=== PATIENT | female | born 1945 | race Caucasian/White ===

== ENCOUNTER 2022-06-26 09:00 | Outpatient (RCR) | payer MEDICARE, BC, SELFPAY ==
--- NOTE | 2022-06-26 15:24 | PT.OPEX ---
PT [place] Outpatient Eval PT [facility] Outpatient Eval Start: 06/05/22 08:20 Freq: Status: Active Protocol: Document 06/05/22 08:30 SUKH (Rec: 06/05/22 12:02 SUKH [id number]) E-signed By Rosario Isabel, PT Physical Therapy Outpatient Evaluation Insurance Information Recert Due Date 09/03/22 Insurance Name Medicare B,[employer] Medical Diagnosis Dysfunction constipation outlet Treating Diagnosis outlet dysfunction constipation lack of coordination Referring MD Dr. Uriel Le Sheela presents to PT with diagnosis of outlet dysfunction constipation. Symptoms have been present for years but have worsened over the past 3-4 years. Does control her issue with constipation with medication and diet. Reports she has issues with bloating and ability to control her gas. She denies any pain with defecating but does not feel like she is able to fully empty. Has urinary urgency issues will with horvath in the door and with running water. Usually in the morning she will struggle to make it to the toilet due to large volumes of urine. Will leak urine approx 1 time a week. Her goal for therapy is to improve function of her bowel. Date of Last Physician Visit 03/22/22 Precautions Treatment Precautions/Contraindications arthritis osteoporosis Sjogren's hypothyroidism depression HTN respiratory problems Assessment Assessment/Impression 77 yo client presents with c/o incomplete emptying of her bowel and bladder. Symptoms have been present for years and are complicated by her PMH . Overall she has a good diet and does drink plenty of fluid. Volume of urine is large at nights (waking 2-4 times a night) and with her first urination in the am. As the day progresses, the volume of urinate does decrease. Pt is able to have daily BM with a softer stool consistency (type 4-6 on Westfall stool scale). Can defecate multiple times a day without ever feeling completely empty. Has had episodes of hypersensitivity in the GI years ago which has improved. Pt is not currently sexually active. Has history of dyspareunia that was partially related to her uterine prolapse and changes in tissues over the past 4 years. Did not assess PFM function today due to time constraints. Plan is to continue with further skilled PT services including use of therapeutic exercise, therapeutic activities, neuromuscular re-ed, manual therapy, and self cares for improving bowel and PFM function. Plan of Care Rehabilitation Potential Good Physical Therapy Goals Short term goals to be achieved in 4 weeks 1. Able to report a reduction in abdominal fullness and bloating by 50% or greater 2. Pt will demonstrate proper toileting posture and pushing techniques to improve bowel function. 3. Pt will report a reduction in her urinary urgency by 60% of greater as seen with ability to better maintain a 2 -4 hour voiding schedule. snf goals to be achieved in 12 weeks. 1. Independent with self-care program to allow for reduction in her bowel/constipation symptoms 2. Will report at least an 80% improvement in ability to feel like bowel is emptying (6 /7 days able to feel empty). 3. Pt able to report ability to control gas 6/7 days. Coordination/Communication With Referral Source Treatment Plan/Direct Interventions Manual Therapy,Neuromuscular Re-ed,Self-Care/Home Management,Therapeutic Activities,Therapeutic Exercises Frequency/Duration 1 time a week for up to 12 visits Patient Will Be Discharged From Therapy Completion of LTG(s),Skills Plateau,Independent w/HEP, Independently Progressing Evaluation Billing Untimed Code Treatment Minutes 45 Complexity Moderate Certification Information Initial Certification Date 06/05/22 Ending Certification Date 09/03/22 Provider Signature Shows Agreement With POC & Medical Necessity Physician Comment/Change Comment or Changes Physician NPI Number #
== END 2022-10-25 14:32 | disposition home or self-care (01) ==
PROVIDERS: PCP Internal Medicine Gastroenterology; Visit Provider Internal Medicine Gastroenterology
DX: K59.02 Outlet dysfunction constipation (principal); Z51.89 Encounter for other specified aftercare
CPT/HCPCS: 97110; 97140; 97162; 97535

== ENCOUNTER 2023-07-25 15:02 | Emergency (ER) | payer MEDICARE, BC, SELFPAY ==
[2023-07-25 15:22] VITALS: BP 162/85; PULSE 78; RESP 18; TEMP 36.7; O2SAT 100; BMI 22.3
--- NOTE | 2023-07-25 18:52 | ED_ITS ---
HPI - General Adult General Date Seen: 07/25/23 Chief complaint: Abdominal Pain Stated complaint: Bowel blockage Time Seen by Provider: 07/25/23 18:25 History of Present Illness HPI narrative: This is a pleasant 78-year-old female presenting to the ER today with her from home for evaluation of constipation. She has a past medical history including chronic troubles with constipation as well as Sjogren syndrome, RA, recent left forearm fracture, hypertension, hypothyroidism. She says she tends to struggle with. The constipation and has for most of her life. This is something she believe she inherited from her father. She typically has a good regimen of hydration and dietary intake with lots of fiber to keep her stools regular. When necessary she will also take a special tea and other [id number] stool softener such as Colace and laxative such as Fleet's enemas. She noticed while she was on vacation about 12 days ago last Saturday that her bowels are beginning to slow down. Since this Saturday she really has not been able to pass any significant bowel movement at all. She has been using Colace, ?calm? oral laxative, and fleets enema at home without significant relief. She is feeling increasingly bloated in her abdomen. She is not vomiting. No fever. No bloody stools. She recently pulled a muscle in her right side of her low back so she is now on Flexeril for that. She does not take any other opiates. No bladder medications or antihistamines or other medications with anticholinergic side effects. No fevers. No vomiting. She has had similar bouts of constipation in the past. One of them occurred years ago when she was on vacation in [place] and was resolved by a dose of lactulose. She had another then was resolved by an enema given to her here in the ED in [place]. Related Data Home Medications Medication Instructions Recorded Confirmed atorvastatin 10 mg tablet 10 mg PO QPM 02/15/23 05/15/23 hydroxychloroquine 200 mg tablet 300 mg PO DAILY 02/15/23 05/15/23 levothyroxine 100 mcg tablet 100 mcg PO QAM 02/15/23 05/15/23 acyclovir 400 mg tablet 400 mg PO TID PRN 02/19/23 05/15/23 calcium 500 mg tablet 500 mg PO DAILY 02/19/23 05/15/23 cholecalciferol (vitamin D3) 25 1,000 unit PO DAILY 02/19/23 05/15/23 mcg (1,000 unit) capsule docosahexaenoic acid (dha)-epa 1 cap PO DAILY 02/19/23 05/15/23 capsule docusate sodium 100 mg capsule 100 mg PO BID 02/19/23 05/15/23 (Colace) loratadine 10 mg tablet (Claritin) 10 mg PO DAILY 02/19/23 05/15/23 amlodipine 5 mg tablet 5 mg PO DAILY 05/15/23 05/15/23 lisinopril 20 mg tablet 20 mg PO DAILY 05/15/23 05/15/23 Previous Rx's Medication Instructions Recorded celecoxib 200 mg capsule (Celebrex) 200 mg PO QDAY #30 caps 02/22/23 lactulose 20 gram/30 mL oral 20 g (30 mL) PO TID PRN 07/25/23 solution constipation #120 mL Allergies Allergy/AdvReac Type Severity Reaction Status Date / Time latex Allergy Mild Rash Verified 05/15/23 09:29 adhesive tape Allergy Rash Verified 05/15/23 09:29 [facility] Medical History Nonrheumatic aortic (valve) stenosis ?I35.0 - Nonrheumatic aortic (valve) stenosis (ICD-10) Abnormality of aortic valve ?Q23.9 - Congenital malformation of aortic and mitral valves, unspecified (ICD-10) HTN (hypertension) ?I10 - Essential (primary) hypertension (ICD-10) Sjogrens syndrome ?M35.00 - Sjogren syndrome, unspecified (ICD-10) Thoracic aortic ectasia ?I77.810 - Thoracic aortic ectasia (ICD-10) Hypothyroidism (acquired) ?E03.9 - Hypothyroidism, unspecified (ICD-10) Hyponatremia ?E87.1 - Hypo-osmolality and hyponatremia (ICD-10) Osteopenia ?M85.80 - Other specified disorders of bone density and structure, unspecified site (ICD-10) Disorder of bone and cartilage, unspecified ?M89.9 - Disorder of bone, unspecified (ICD-10) ?M94.9 - Disorder of cartilage, unspecified (ICD-10) Migraine ?G43.909 - Migraine, unspecified, not intractable, without status migrainosus (ICD-10) 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 (ICD-10) Premenstrual tension syndromes ?N94.3 - Premenstrual tension syndrome (ICD-10) Surgical History History of temporal artery biopsy (04/22/08) ?Z98.890 - Other specified postprocedural states (ICD-10) History of phacoemulsification of cataract of left eye with intraocular lens implantation (07/30/18) ?Z98.42 - Cataract extraction status, left eye (ICD-10) ?Z96.1 - Presence of intraocular lens (ICD-10) History of phacoemulsification of cataract of right eye with intraocular lens implantation (08/13/18) ?Z98.41 - Cataract extraction status, right eye (ICD-10) ?Z96.1 - Presence of intraocular lens (ICD-10) History of open reduction and internal fixation (ORIF) procedure (02/21/23) ?Z98.890 - Other specified postprocedural states (ICD-10) H/O dilation and curettage ?Z98.890 - Other specified postprocedural states (ICD-10) Social History Smoking Status: Never smoker How often do you have a drink containing alcohol: never AUDIT-C Alcohol total score: 0 Non-prescribed substance use: denies use Caffeine: Yes service: No Exam Narrative: Exam Narrative: Constitutional: Appears well-developed and well-nourished. Alert. Conversant. Non toxic. HENT: Head: Atraumatic. Nose: Nose normal. Mouth/Throat: Oral mucosa is clear and moist. no trismus. Pharynx normal. Tonsils symmetric. No tonsillar enlargement, erythema, or exudate. Eyes: Conjunctivae normal. EOM normal. Pupils equal, round, and reactive to light. No scleral icterus. Neck: Normal range of motion. Neck supple. No tracheal deviation present. Cardiovascular: Normal rate, regular rhythm. No gallop. No friction rub. No murmur heard. Symmetric radial artery pulses Pulmonary/Chest: Effort normal. No stridor. No respiratory distress. No wheezes. No rales. No rhonchi . No tenderness. Abdominal: Soft. Bowel sounds normal. No distension. Non tympanic. Left lower quadrant mobile mass suspicious for a stool ball. No tenderness. No rebound. No guarding. Rectal: Performed with female railroad wheels and axles inspector. Normal gluteal cleft. One small external hemorrhoid. No thrombosis. Normal rectal tone. There is no stool or mass in the rectal vault. Musculoskeletal: RUE: Normal range of motion. No tenderness. No deformity LUE: Normal range of motion. No tenderness. No deformity RLE: Normal range of motion. No edema. No tenderness. No deformity LLE: Normal range of motion. No edema. No tenderness. No deformity Lymph: No cervical adenopathy. Neurological: Alert and oriented to person, place, and time. Normal strength. CN II-VII intact. No sensory deficit. GCS eye subscore is 4. GCS verbal subscore is 5. GCS motor subscore is 6. Normal coordination Skin: Skin is warm and dry. No rash noted. No pallor. Normal capillary refill. Psychiatric: Normal mood. Normal affect. Const: Vital Signs, click to edit/add: Vital Signs - 24 hr 07/25/23 15:22 Temperature 98.0 F Pulse Rate [Pulse Oximeter] 78 Respiratory Rate 18 Blood Pressure [Ri ght Upper Arm] 162/85 H Pulse Oximetry 100 Oxygen Delivery Me thod Room Air Course Course ED Course: Recheck-no success self EMS after soapsuds enema. Has received oral lactulose. No BM yet. Is feeling some abdominal cramping after the enema. I recheck the patient reexamined her abdomen. Still soft, nondistended, non tympanic. Discussed options with the patient and her . At this point she is tolerating oral intake. Not vomiting, not having much discomfort or distention. We will treat here supportively with oral laxative at home. Will hold off on workup with CT imaging or labs at this time. However if she does not have significant bowel movements and resolution of her symptoms within the next 12-18 hours, she will return to the ER for re-evaluation. She at that time would pursue further workup with CT imaging just to rule out the the presence of a mechanical obstruction and labs to look at electrolytes, calcium, thyroid for other metabolic causes of ileus. Vital Signs Vital signs: Initial Vital Signs Temperature 98.0 F 07/25/23 15:22 Temperature Source Temporal Artery Scan 07/25/23 15:22 Pulse Rate 78 07/25/23 15:22 Pulse Rhythm Regular 07/25/23 15:22 Respiratory Rate 18 07/25/23 15:22 Blood Pressure 162/85 H 07/25/23 15:22 Blood Pressure Mean 110 H 07/25/23 15:22 Blood Pressure Position Sitting 07/25/23 15:22 Pulse Oximetry 100 07/25/23 15:22 Oxygen Delivery Method Room Air 07/25/23 15:22 Vital Signs Temperature 98.0 F 07/25/23 15:22 Pulse Rate 78 07/25/23 15:22 Respiratory Rate 18 07/25/23 15:22 Blood Pressure 162/85 H 07/25/23 15:22 Pulse Oximetry 100 07/25/23 15:22 Oxygen Delivery Method Room Air 07/25/23 15:22 Temperature 98.0 F 07/25/23 15:22 Pulse Rate 78 07/25/23 15:22 Respiratory Rate 18 07/25/23 15:22 Blood Pressure 162/85 H 07/25/23 15:22 Pulse Oximetry 100 07/25/23 15:22 Oxygen Delivery Method Room Air 07/25/23 15:22 Medical Decision Making MDM Narrative Medical decision making narrative: Presented to the Emergency Department with inability to pass any bowel movement for the past several days at home. She does have a long history of GI transit problems and constipation her, and she feels that this is similar to those prior episodes. She is not having much abdominal pain to raise concern for appendicitis, colitis, diverticulitis, or obstruction. On serial exam she is nondistended non tympanic. She does have a history of hypothyroidism, which if unmanaged could lead to slow GI transit. However she does not have any other symptoms of hypothyroidism such as poor energy, weight gain, swelling. At this point we will hold off on any laboratory workup and try to treat empirically for constipation. On my rectal exam she does not have any significant stool directly in the rectal vault that would be able to be disimpacted. Administration of soapsuds enema unsuccessful. We have administered oral laxatives with lactulose here in the ER. Will await onset of that medication prior to further workup. The exact etiology of the the constipation is not clear at this time, but we suspect is probably functional. No life threatening cause or need for emergent surgery or hospital admission is detected today. The patient was advised that if symptoms do not completely resolve within another 12-18 hours re-evaluation with primary care or return to the ED is indicated. The patient also understands that if they worsen, they should return to the ER right away. I discussed the uncertainty about the diagnosis and answered the patient's questions. Abdominal pain return precautions discussed. Discharge Plan Discharge Clinical Impression: Acute constipation Patient Disposition: Home, Self-Care Condition: Stable Instructions: Constipation (DC) Additional Instructions: As we discussed, please continue to try to stay on your bowel regimen at home. Drink as much fluid as he can to remain adequately hydrated. Continue your current bowel regimen with stool softeners. Add lactulose. Take your next dose of that tomorrow morning and after lunch tomorrow. If you get worse, come back to the ER right away. If you are not able to pass adequate bowel movements by tomorrow afternoon, return to the ER or see your doctor for recheck because he will need further workup with labs and CT scan. Activity Level: No Restrictions Discharge Diet: Regular Prescriptions: New lactulose 20 gram/30 mL solution 20 g PO TID PRN (Reason: constipation) Qty: 120 0RF No Action amlodipine 5 mg tablet 5 mg PO DAILY lisinopril 20 mg tablet 20 mg PO DAILY atorvastatin 10 mg tablet 10 mg PO QPM levothyroxine 100 mcg tablet 100 mcg PO QAM hydroxychloroquine 200 mg tablet 300 mg PO DAILY acyclovir 400 mg tablet 400 mg PO TID PRN Rx Instructions: X7 DAYS calcium 500 mg tablet 500 mg PO DAILY cholecalciferol (vitamin D3) 25 mcg (1,000 unit) capsule 1,000 unit PO DAILY docusate sodium [Colace] 100 mg capsule 100 mg PO BID loratadine [Claritin] 10 mg tablet 10 mg PO DAILY docosahexaenoic acid-epa Capsule 1 cap PO DAILY celecoxib [Celebrex] 200 mg capsule 200 mg PO QDAY Qty: 30 1RF Follow Up/Referrals: Genesis Andersen MD [Primary Care Provider] - Stand Alone Forms: [employer] Info Instructions
--- OUTSIDE RECORDS SUMMARY | 2023-07-25 19:06 | XMS_ITS | Continuity of Care Document ---
Author Name Unknown Organization [facility] Address [address] [place] [address] Phone Care Team Providers Care Card Decorator Name Role Phone Patti Jolly MD Unavailable Unavailable Allergies, Adverse Reactions, Alerts Substance Reaction Status Criticality Sulfa (Sulfonamide Antibiotics) Active No Information Medications Medication Instructions Dosage Effective Dates (start - stop) Status Comments Plaquenil 200 mg tablet take 1.5 (300MG) by oral route every day 300 MG - Active magnesium glycinate-magnesium oxide 120 mg capsule take 1 capsule by oral route 2 times every day 1 capsule - Active lisinopril 40 mg tablet take 1 tablet by oral route every day 40 MG - Active magnesium citrate oral solution - Active acyclovir 400 mg tablet take 1 tablet by oral route every 8 hours as needed 400 MG - Active atorvastatin 10 mg tablet take 1 tablet by oral route every day 10 MG - Active calcium citrate 250 mg tablet 630mg BID - Active Claritin 10 mg tablet take 1 tablet by oral route every day 10 MG - Active Colace 100 mg capsule take 1 capsule by oral route 2 times every day at bedtime as needed 100 MG - Active Synthroid 100 mcg tablet take 1 tablet by oral route every day 100 MCG - Active metronidazole 0.75 % topical cream apply by topical route 2 times every day a thin layer to the affected area(s) in the morning and evening 0.00 - Active Vitamin D3 1,000 unit capsule - Active Fish Oil 1,000 mg (120 mg-180 mg) capsule - Active Plaquenil 200 mg tablet take 1.5 (300MG) by oral route every day 300 MG - No Longer Active Procedures Procedure Date Office/Outpatient Visit, Est Routine Venipuncture Specimen Handling Rbc Sed Rate, Automated Assay Of Serum Albumin Assay Of Creatinine Transferase (Ast) (Sgot) Alanine Amino (Alt) (Sgpt) Complete Cbc WAuto Diff Wbc Office/Outpatient Visit, Est Office/Outpatient Visit, Est Routine Venipuncture Specimen Handling Rbc Sed Rate, Nonautomated Assay Of Serum Albumin Assay Of Creatinine Transferase (Ast) (Sgot) Alanine Amino (Alt) (Sgpt) CReactive Protein Complete Cbc WAuto Diff Wbc Office/Outpatient Visit, Est Routine Venipuncture Rbc Sed Rate, Nonautomated Assay Of Serum Albumin Assay Of Creatinine Transferase (Ast) (Sgot) Alanine Amino (Alt) (Sgpt) CReactive Protein Vitamin D 25 Hydroxy Complete Cbc, Automated Assay Of Calcium Office/Outpatient Visit, Est Routine Venipuncture Rbc Sed Rate, Nonautomated CReactive Protein Office/Outpatient Visit, Est Routine Venipuncture Assay Of Serum Albumin Assay Of Creatinine Transferase (Ast) (Sgot) Alanine Amino (Alt) (Sgpt) Complete Cbc, Automated Routine Venipuncture Assay Of Serum Albumin Assay Of Creatinine Transferase (Ast) (Sgot) Alanine Amino (Alt) (Sgpt) Complete Cbc, Automated Office/Outpatient Visit, Est Routine Venipuncture Rbc Sed Rate, Nonautomated Assay Of Serum Albumin Assay Of Creatinine Transferase (Ast) (Sgot) Alanine Amino (Alt) (Sgpt) CReactive Protein Complete Cbc, Automated Office/Outpatient Visit, Est Routine Venipuncture Rbc Sed Rate, Nonautomated Office/Outpatient Visit, Est Office/Outpatient Visit, Est Specimen Handling Office/Outpatient Visit, New Routine Venipuncture Specimen Handling Rbc Sed Rate, Nonautomated Assay Of Serum Albumin Assay Of Creatinine Transferase (Ast) (Sgot) Alanine Amino (Alt) (Sgpt) Assay Of Ck (Cpk) CReactive Protein Results Test Name Date and Time Measure Units Reference Range Abnormal Flag Status Comments Panel Description: ESR Final ESR 10:13:00 15 mm/hr 0-25 Final Panel Description: CBC 5 part diff Final Neutrophils# 10:14:00 3.16 K/uL 2.00-7.50 Final Neutrophil % 10:14:00 70.90 % 0.00-99.00 Final Eosinophil # 023 10:14:00 0.11 K/uL 0.00-0.50 Final Eosinophil % 10:14:00 2.40 % 0.00-7.00 Final Basophil # 10:14:00 0.02 K/uL 0.00-0.20 Final Basophil % 10:14:00 0.50 % 0.00-99.00 Final WBC 10:14:00 4.5 K/uL 4.0-10.0 Final RBC 10:14:00 3.87 M/uL 3.80-5.80 Final Hemoglobin 10:14:00 12.4 g/dL 11.5-16.0 Final Hematocrit 10:14:00 36.4 % 37.0-47.0 L Final MCV 10:14:00 94 fL 80-100 Final MCH 10:14:00 32.0 pg 27.0-32.0 Final MCHC 10:14:00 34.0 g/dL 32.0-36.0 Final RDW 10:14:00 12.7 % 11.0-16.0 Final Platelet Count 10:14:00 220 K/uL 150-500 Final MPV 10:14:00 8.8 fL 6.0-11.0 Final Lymphocyte% 10:14:00 16.30 % 25.00-50.00 L Final Lymphocyte # 10:14:00 0.7 K/uL 1.0-4.0 L Final Monocytes # 10:14:00 0.44 K/uL 0.20-1.00 Final Monocytes % 10:14:00 9.90 % 2.00-10.00 Final Panel Description: DMARD Final AST 11:51:00 36 U/L 5-34 H Final ALT 11:51:00 17 IU/L 5-35 Final Creatinine 11:51:00 0.700 mg/dL 0.500-1.300 Final ALB 11:51:00 4.1 g/dL 3.5-5.3 Final GFR 11:51:00 86.5 mL/min/ 1.73 m2 Final Panel Description: PROTEIN, TOTAL AND PROTEIN ELECTROPHORESIS W/ REFL FLORI Final PROTEIN, TOTAL 15:28:00 6.5 g/dL 6.1-8.1 N Final ALBUMIN 15:28:00 3.9 g/dL 3.8-4.8 N Final ALPHA 1 GLOBULIN 15:28:00 0.3 g/dL 0.2-0.3 N Final ALPHA 2 GLOBULIN 15:28:00 0.7 g/dL 0.5-0.9 N Final BETA 1 GLOBULIN 15:28:00 0.3 g/dL 0.4-0.6 L Final BETA 2 GLOBULIN 15:28:00 0.3 g/dL 0.2-0.5 N Final GAMMA GLOBULIN 15:28:00 1.0 g/dL 0.8-1.7 N Final INTERPRETATION 15:28:00 Final The decrease i n the beta globulins may be due to decreasedtransfe rrin, complement (C3 and C4), IgA, or IgM. No monoclonal immunoglobulin detected. Advance Directives Directive Yes / No Effective Date File Name No Information Encounters Encounter Description Practice Location Reason(s) For Visit Diagnoses Date Provider Providers Copied on Encounter Office/Outpa tient Visit, Est [facility], [facility], [place], [address], [place] tel:[phone] [facility], Inflammatory Polyarthropat hy (chief complaint) Abnormal weight lossInflamma tory polyarthropa thyOsteopeni aSjogren's syndromeOthe r residential (current) drug therapy 3 Shanae Armstrong. [address], [address], [place], [address], [place]. tel:[phone] Referring Provider: Patti Jolly, [address], [place], [address]. tel:[phone] [facility], [address], [place], [address], [place] tel:[phone] [facility], No Information 3 Shanae Armstrong. [address], [address], [place], [address], [place]. tel:[phone] Office/Outpa tient Visit, Est [facility], [address], [place], [address], [place] tel:[phone] [facility], Inflammatory Polyarthropat hy (chief complaint) Inflammatory polyarthropa thyOsteopeni aSjogren's syndromeOthe r local company intermodal truck driver (current) drug therapyAbnor mal weight loss 2 Shanae Armstrong. [address], [address], [place], [address], [place]. [phone] Referring Provider: Patti Jolly, [address], [place], [address]. 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 [address], [address], [place], [address], [place]. [phone] Referring Provider: Patti Jolly, [address], [place], [address]. tel:[phone] Office/Outpa tient Visit, Est [facility], [address], [place], [address], [place] tel:[phone] [facility], Inflammatory Polyarthropat hy (chief complaint) Inflammatory polyarthropa thySjogren's syndromeOthe r local company intermodal truck driver (current) drug therapyOsteo peniaDrug induced constipation and bloating 2 Shanae Armstrong. [address], [address], [place], [address], [place]. tel:[phone] Referring Provider: Patti Jolly, [address], [place], [address]. tel:[phone] Office/Outpa tient Visit, Est [facility], [address], [place], [address], [place] tel:[phone] [facility], Inflammatory Polyarthropat hy (chief complaint) Inflammatory polyarthropa thySjogren's syndromeOthe r residential (current) drug therapy 1 Shanae Armstrong. [address], [address], [place], [address], [place]. tel:[phone] Referring Provider: Patti Jolly, [address], [place], [address]. tel:[phone] Office/Outpa tient Visit, Est [facility], [address], [place], [address], [place] tel:[phone] [facility], Inflammatory Polyarthropat hy (chief complaint) Inflammatory polyarthropa thySjogren's syndromeOthe r residential (current) drug therapy 1 Shanae Armstrong. [address], [address], [place], [address], [place]. tel:[phone] Referring Provider: Patti Jolly, [address], [place], [address]. tel:[phone] [facility], [address], [place], [address], [place] tel:[phone] [facility], No Information 1 Shanae Armstrong. [address], [address], [place], [address], [place]. tel:[phone] Referring Provider: Pattiporsche Jolly, [address], [place], [address]. tel:[phone] Office/Outpa tient Visit, Est [facility], [address], [place], [address], [place] tel:[phone] [facility], Inflammatory Polyarthropat hy (chief complaint) Inflammatory polyarthropa thySjogren's syndromeOthe r residential (current) drug therapy 1 Shanae Armstrong. [address], [address], [place], [address], [place]. tel:[phone] Referring Provider: Patti Jolly, [address], [place], [address]. tel:[phone] Office/Outpa tient Visit, Est [facility], [address], [place], [address], [place] tel:[phone] [facility], Inflammatory Polyarthropat hy (chief complaint) Inflammatory polyarthropa thyRash and other nonspecific skin eruptionDry mouthPositiv e anti-Ro 1 Shanae Armstrong. [address], [address], [place], [address], [place]. tel:[phone] Referring Provider: Pattiporsche Jolly, [address], [place], [address]. tel:[phone] Office/Outpa tient Visit, Est [facility], [address], [place], [address], [place] tel:[phone] [facility], Inflammatory Polyarthropat hy (chief complaint) Inflammatory polyarthropa thyDry mouthPositiv e anti-RoRash and other nonspecific skin eruption 1 Shanae Patti. [address], [address], [place], [address], [place]. [phone] Referring Provider: Patti Jolly, [address], [place], [address]. tel:[phone] Office/Outpa tient Visit, Est [facility], [address], [place], [address], [place] tel:[phone] [facility], Joint Pain (chief complaint) Dry mouthInflamm atory polyarthropa thyPositive anti-Ro Nov-2 0 0 Shanae Patti. [address], [address], [place], [address], [place]. [phone] Referring Provider: Patti Jolly, [address], [place], [address]. tel:[phone] Office/Outpa tient Visit, [facility], [address], [place], [address], [place] tel:[phone] [facility], Joint Pain (chief complaint) Polyarthralg ia Jul-0 0 Shanae Patti. [address], [address], [place], [address], [place]. [phone] Referring Provider: Patti Jolly, [address], [place], [address]. tel:[phone] Family History Family Member Type Diagnosis Age At Onset No Information Immunizations Vaccine Date Status Comments COVID-19 Pfizer administered Source: Sour ce Unspecified Payers Payer name Insurance type Covered democrat ID Authoriza tisouth(s) Medicare MB [id number] [facility] [id number] Social History Type Description Quantity Date Captured Comments Alcohol Use Details Unknown Caffeine Use Details Unknown Tobacco Use Status Current non-smoker Smoking Status Never smoker Non-Smoking Tobacco Use Details : No Details Available : No Details Available Sex Female Vital Signs Date / Time: Height Weight BMI Pulse Rate Blood Pressure Temperature Respiratory Rate Body Surface Area Head Circumference Head Circ. Percentile Wt./Amilcar. Percentile BMI percentile Pulse Ox Inhaled Ox 8:54 AM 66.50 in 159/88 mm[Hg] 98.10 F Chief Complaint And Reason For Visit From encounter dated '03/05/2023 09:00'. Inflammatory Polyarthropathy (chief complaint) Reason For Referral Reason For Referral No Information Plan Of Treatment Date Type Action Status Appointment Sheela Pitts BOOKED History Of Present Illness Encounter Date Complaint History Of Prese nt Illness Inflammatory Polyarthropathy Inflammatory Polyarthropathy Inflammatory Polyarthropathy Inflammatory Polyarthropathy Inflammatory Polyarthropathy Inflammatory Polyarthropathy Inflammatory Polyarthropathy Inflammatory Polyarthropathy Inflammatory Polyarthropathy Joint Pain Joint Pain Functional Status Date Functional Assessmen t Pain Score 3/10 Instructions Date Instruction Additional Infor mation No Information Assessments Type Assessment Date assessment Abnormal weight loss assessment Inflammatory polyarthropathy Feb assessment Osteopenia assessment Sjogren's syndrome assessment Other residential (current) drug t herapy impression The patient certainl y has evidence of an inflammatory arthritis. I wonder if this is related to a connective tissue disease such as Sjogren's syndrome based on her serologies. She only had a mildly elevated RF IgM which can also be seen in Sjogren's syndrome. She also has chilblains of the feet as well as lymphopenia. Her optimization analyst felt she had mild dry eye. She can likely be categorized as Sjogren's syndrome based on positive MINNIE, positive anti-Ro/La, sicca syndrome, inflammatory arthritis, and lymphopenia.Her inflammatory arthritis significantly improved on hydroxychloroquine. She could not tolerate methotrexate, leflunomide, or azathioprine. Her GI symptoms have resolved since stopping azathioprine but she continues to have weight loss. She is under a lot of stress due to moving.Seeing vascular surgery and cardiology for the discoloration of her feet. I discussed with her that I do not think this is necessarily related to Sjogren's. If their work-up is unremarkable she may benefit from neurology evaluation. impression As noted above I yobany maldonado her presentation is consistent with Sjogren's syndrome.I provided her with information on oral care for dry mouth. She is already seeing the dentist regularly and using fluoride toothpaste and she should continue this. As noted above we are obtaining further work-up to see if she meets criteria for Sjogren's syndrome.We briefly discussed pilocarpine and cevimeline. The patient elected to continue OTC products for now. impression She is aware of the need for yearly eye exam on hydroxychloroquine and is up-to-date with this. impression She notes that her o steopenia has worsened per primary care evaluation. She is was recommended to start Fosamax. She is very concerned about being on this medication due to her GI issues. I recommended she discuss with her primary care provider if they are okay with her trying Reclast instead of the Fosamax. If they are okay with this then we can work on getting that approved here. She is going to wait until her GI symptoms improved before starting the medication. We did also discussed that Reclast is an option. impression She continues to hav e weight loss despite stopping azathioprine. She relates the side effects from the medication are resolved so she is not sure why she is having ongoing weight loss. We discussed adding ensure drinks and working on upping her calories. If this continues, she may benefit from seeing a flag car driver and discussing it further with primary care. Patient Care Teams Name Effective Dates (start - stop) Status Members No Information
[2023-07-25] MEDS: LACTULOSE 20 GM/30 ML PO (19:21)
== END 2023-07-25 20:44 | disposition home or self-care (01) ==
PROVIDERS: Emergency Provider Emergency Medicine; PCP Family Medicine
DX: K59.00 Constipation, unspecified (principal)
CPT/HCPCS: 99283

== ENCOUNTER 2023-07-26 12:34 | Emergency (ER) | payer MEDICARE, BC, SELFPAY ==
[2023-07-26 13:11] VITALS: BP 165/80; PULSE 83; RESP 16; TEMP 36.2; O2SAT 100; BMI 22.3
--- NOTE | 2023-07-26 15:49 | ED_ITS ---
HPI - General Adult General Chief complaint: Constipation Stated complaint: constipation Time Seen by Provider: 07/26/23 15:48 History of Present Illness HPI narrative: Patient here in ER yesterday for constipation. LBM 07/22/2023. Seen by PCP Saturday this week at [facility], abdominal XRay done. Has been doing enema, suppositories, and magnesium citrate at home . Had dose of lactulose this morning. Enema in ER with no results. Feeling slightly nauseated, lightheaded. Here for CT, labs, re-check as outlined as recommended follow up in last ER note if no BM by today . 78-year-old woman presenting to the emergency department with concern of constipation. Feels a little nauseated lightheaded. Was recommended for follow-up in the emergency department after being seen yesterday if had not yet managed have a bowel movement. Has also been seen this week in the clinic. Abdominal x-ray was done at that time. She has done home enema suppository and reportedly magnesium citrate? Lactulose given on visit yesterday to the ER. Is having sharp cramping pains. No fever. No vomiting. Related Data Home Medications Medication Instructions Recorded Confirmed atorvastatin 10 mg tablet 10 mg PO QPM 02/15/23 05/15/23 hydroxychloroquine 200 mg tablet 300 mg PO DAILY 02/15/23 05/15/23 levothyroxine 100 mcg tablet 100 mcg PO QAM 02/15/23 05/15/23 acyclovir 400 mg tablet 400 mg PO TID PRN 02/19/23 05/15/23 calcium 500 mg tablet 500 mg PO DAILY 02/19/23 05/15/23 cholecalciferol (vitamin D3) 25 1,000 unit PO DAILY 02/19/23 05/15/23 mcg (1,000 unit) capsule docosahexaenoic acid (dha)-epa 1 cap PO DAILY 02/19/23 05/15/23 capsule docusate sodium 100 mg capsule 100 mg PO BID 02/19/23 05/15/23 (Colace) loratadine 10 mg tablet (Claritin) 10 mg PO DAILY 02/19/23 05/15/23 amlodipine 5 mg tablet 5 mg PO DAILY 05/15/23 05/15/23 lisinopril 20 mg tablet 20 mg PO DAILY 05/15/23 05/15/23 Previous Rx's Medication Instructions Recorded celecoxib 200 mg capsule (Celebrex) 200 mg PO QDAY #30 caps 02/22/23 lactulose 20 gram/30 mL oral 20 g (30 mL) PO TID PRN 07/25/23 solution constipation #120 mL Allergies Allergy/AdvReac Type Severity Reaction Status Date / Time latex Allergy Mild Rash Verified 05/15/23 09:29 adhesive tape Allergy Rash Verified 05/15/23 09:29 Review of Systems Status of ROS: Reports: 6 or more systems reviewed and unremarkable except as noted in History and below [facility] Medical History Nonrheumatic aortic (valve) stenosis ?I35.0 - Nonrheumatic aortic (valve) stenosis (ICD-10) Abnormality of aortic valve ?Q23.9 - Congenital malformation of aortic and mitral valves, unspecified (ICD-10) HTN (hypertension) ?I10 - Essential (primary) hypertension (ICD-10) Sjogrens syndrome ?M35.00 - Sjogren syndrome, unspecified (ICD-10) Thoracic aortic ectasia ?I77.810 - Thoracic aortic ectasia (ICD-10) Hypothyroidism (acquired) ?E03.9 - Hypothyroidism, unspecified (ICD-10) Hyponatremia ?E87.1 - Hypo-osmolality and hyponatremia (ICD-10) Osteopenia ?M85.80 - Other specified disorders of bone density and structure, unspecified site (ICD-10) Disorder of bone and cartilage, unspecified ?M89.9 - Disorder of bone, unspecified (ICD-10) ?M94.9 - Disorder of cartilage, unspecified (ICD-10) Migraine ?G43.909 - Migraine, unspecified, not intractable, without status migrainosus (ICD-10) 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 (ICD-10) Premenstrual tension syndromes ?N94.3 - Premenstrual tension syndrome (ICD-10) Surgical History History of temporal artery biopsy (04/22/08) ?Z98.890 - Other specified postprocedural states (ICD-10) History of phacoemulsification of cataract of left eye with intraocular lens implantation (07/30/18) ?Z98.42 - Cataract extraction status, left eye (ICD-10) ?Z96.1 - Presence of intraocular lens (ICD-10) History of phacoemulsification of cataract of right eye with intraocular lens implantation (08/13/18) ?Z98.41 - Cataract extraction status, right eye (ICD-10) ?Z96.1 - Presence of intraocular lens (ICD-10) History of open reduction and internal fixation (ORIF) procedure (02/21/23) ?Z98.890 - Other specified postprocedural states (ICD-10) H/O dilation and curettage ?Z98.890 - Other specified postprocedural states (ICD-10) Social History Smoking Status: Never smoker How often do you have a drink containing alcohol: never AUDIT-C Alcohol total score: 0 Non-prescribed substance use: denies use Caffeine: Yes service: No Exam Narrative: Exam Narrative: Pleasant. Seems mildly uncomfortable. Smiles easily. Skin is warm and dry. Extremities are well perfused lower extremities without edema. She is breathing easily. Heart in regular rate and rhythm. Abdomen with present bowel sounds. Tympanitic particularly across the mid and upper abdomen. Diffusely uncomfort able. No masses. No discrete areas of tenderness and without peritoneal signs. Rectal exam was not done. Const: Vital Signs, click to edit/add: Vital Signs - 24 hr 07/26/23 13:11 Temperature 97.1 F L Pulse Rate [Right Pulse Oximeter] 83 Respiratory Rate 16 Blood Pressure [Ri ght Upper Arm] 165/80 H Pulse Oximetry 100 Oxygen Delivery Me thod Room Air Documenting provider has reviewed patient's vital signs: yes Course Vital Signs Vital signs: Initial Vital Signs Temperature 97.1 F L 07/26/23 13:11 Temperature Source Temporal Artery Scan 07/26/23 13:11 Pulse Rate 83 07/26/23 13:11 Pulse Rhythm Regular 07/26/23 13:11 Respiratory Rate 16 07/26/23 13:11 Blood Pressure 165/80 H 07/26/23 13:11 Blood Pressure Mean 108 H 07/26/23 13:11 Blood Pressure Position Sitting 07/26/23 13:11 Pulse Oximetry 100 10/27/23 13:11 Oxygen Delivery Method Room Air 07/26/23 13:11 Vital Signs Temperature 97.1 F L 07/26/23 13:11 Pulse Rate 83 07/26/23 13:11 Respiratory Rate 16 07/26/23 13:11 Blood Pressure 165/80 H 07/26/23 13:11 Pulse Oximetry 100 07/26/23 13:11 Oxygen Delivery Method Room Air 07/26/23 13:11 Temperature 97.1 F L 07/26/23 13:11 Pulse Rate 83 07/26/23 13:11 Respiratory Rate 16 07/26/23 13:11 Blood Pressure 165/80 H 07/26/23 13:11 Pulse Oximetry 100 07/26/23 13:11 Oxygen Delivery Method Room Air 07/26/23 13:11 Medical Decision Making MDM Narrative Medical decision making narrative: I think constipation is still the bleeding issue here. Might be obstipated. I think we can be more aggressive in treatment. I would consider repeat though of x-ray looking for pattern that might suggest more of a bowel obstruction although I think think that is not present based on her symptoms. Normal vitals, not vomiting, no fever I do not think require lab work at this time. X-ray of abdomen and pelvis shows diffuse gas without concerning pattern by my read. A good deal of stool throughout the left side colon all the way to the rectum. I think that being a little bit more aggressive with treatment we might be successful. Was given a pink lady enema ultimately with success. Improved. See patient discharge plan Medical Records Medical records reviewed: Yes I reviewed the patient's medical records Discharge Plan Discharge Clinical Impression: Constipation Patient Disposition: Home w/ Parent or Adult Condition: Improved Additional Instructions: Focus on hydration. I would continue to work from below with enemas or suppositories nightly. If you still sensing hard stool though consider placing an enema twice a day. Consider drinking a bottle of magnesium citrate and if do not have another good result by morning could take another 1. Alternatively could divide the dose in half. See this FruitLax recipe -- feel free to modify, maybe with more orange juice. Take daily. Might also use MiraLax equivalent dosing 3 doses over the course of the day adjusting to stool consistency and continuing for a total of 2 weeks. Prescriptions: No Action amlodipine 5 mg tablet 5 mg PO DAILY lisinopril 20 mg tablet 20 mg PO DAILY atorvastatin 10 mg tablet 10 mg PO QPM levothyroxine 100 mcg tablet 100 mcg PO QAM hydroxychloroquine 200 mg tablet 300 mg PO DAILY lactulose 20 gram/30 mL solution 20 g PO TID PRN (Reason: constipation) Qty: 120 0RF acyclovir 400 mg tablet 400 mg PO TID PRN Rx Instructions: X7 DAYS calcium 500 mg tablet 500 mg PO DAILY cholecalciferol (vitamin D3) 25 mcg (1,000 unit) capsule 1,000 unit PO DAILY docusate sodium [Colace] 100 mg capsule 100 mg PO BID loratadine [Claritin] 10 mg tablet 10 mg PO DAILY docosahexaenoic acid-epa Capsule 1 cap PO DAILY celecoxib [Celebrex] 200 mg capsule 200 mg PO QDAY Qty: 30 1RF Follow Up/Referrals: Genesis Andersen MD [Primary Care Provider] - Stand Alone Forms: [facility] Info Instructions
--- NOTE | 2023-07-26 16:27 | CRLHL7_ITS ---
For Patients: As a result of the Century Cures Act, medical imaging exams and procedure reports are released immediately into your electronic medical record. You may view this report before your referring provider. If you have questions, please contact your health care provider. Indication: Abdominal pain Technique: Abdomen 2 view Comparison: None Findings/Impression: Air seen throughout the colon with colonic diameter upper normal. Large amount of stool seen throughout the left colon extending to the level of the rectum. This does raise the possibility of fecal impaction. No abnormal calcifications seen. Lung bases unremarkable. Dictated by Tre Gonzalez MD @ 07/26/2023 5:42:15 PM (Electronically Signed)
--- NOTE | 2023-07-26 19:05 | ED.NURSE ---
Report from RAZ Ohara. I will now assume care of patient.
== END 2023-07-26 20:21 | disposition home or self-care (01) ==
PROVIDERS: Emergency Provider Family Medicine; PCP Family Medicine
DX: K59.00 Constipation, unspecified (principal)
CPT/HCPCS: 74019; 80048; 81001; 83605; 85025; 86140; 99283; 99284

== ENCOUNTER 2023-08-06 09:30 | Outpatient (RCR) | payer MEDICARE, BC, SELFPAY ==
--- NOTE | 2023-02-28 19:09 | OT.OPOE ---
OT Outpatient Ortho Eval OT Outpatient Ortho Eval* Start: 02/27/23 17:30 Freq: Status: Active Protocol: Document 02/28/23 07:03 AMB (Rec: 02/28/23 19:05 AMB [id number]) E-signed By Anni Mosley, OTR/L, CLT, FUEL MANAGER OT OP Ortho Eval Details Complexity Complexity Low Insurance Information Insurance Information Medicare B Outpatient History/Precautions Current Condition/Medical Diagnosis Referring Provider Carmela Gibbons PA-C Treatment Diagnosis DR england of LUE s/p ORIF, finger swelling Date of Onset 02/21/23 (DOS), 02/15/23 (DOI) Other Precautions PT'S IS IMMUNOCOMPRMISED PT WOULD LIKE MASKS TO BE WORN WHEN WORKING WITH HER TO PROTECT HER Other Conditions PMH: (copied from medical chart) Active Problems (Updated 02/27 @ 10:35 by Carmela Zamudio PA-C) Episodic lightheadedness ( Acute) R42 - Dizziness and giddiness (ICD-10) Fracture of left wrist (Acute) Date of injury 02/15/2023, open reduction internal fixation S62.102A - Fracture of unspecified carpal bone, left wrist, initial encounter for closed fracture (ICD-10) Medical History (Updated 02/27 @ 10:35 by Carmela Zamudio PA-C) Nonrheumatic aortic (valve) stenosis I35.0 - Nonrheumatic aortic ( valve) stenosis (ICD-10) 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, unspecified ( ICD-10) HTN (hypertension) I10 - Essential (primary) hypertension (ICD-10) Sjogrens syndrome M35.00 - Sjogren syndrome, unspecified (ICD-10) Thoracic aortic ectasia I77.810 - Thoracic aortic ectasia (ICD-10) Hypothyroidism (acquired) E03.9 - Hypothyroidism, unspecified (ICD-10) Hyponatremia E87.1 - Hypo-osmolality and hyponatremia (ICD-10) Osteopenia M85.80 - Other specified disorders of bone density and structure, unspecified site ( ICD-10) Disorder of bone and cartilage , unspecified M89.9 - Disorder of bone, unspecified (ICD-10) M94.9 - Disorder of cartilage, unspecified (ICD-10) Migraine G43.909 - Migraine, unspecified, not intractable, without status migrainosus ( ICD-10) 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 (ICD- 10) Premenstrual tension syndromes N94.3 - Premenstrual tension syndrome (ICD-10) Surgical History (Updated @ 07:48 by Xi Hall ~ EDGE SANDER, EDGE SANDER) History of open reduction and internal fixation (ORIF) procedure (02/21/23) Z98.890 - Other specified postprocedural states (ICD-10) H/O dilation and curettage Z98.890 - Other specified postprocedural states (ICD-10) Medical/Functional History Medical History Reviewed Yes Prior Level of Function/Mobility Full, pain-free use of her LUE Social History Employment Status Retired Hobbies Gardening Fitness Likes to walk / stays active Ortho Subjective Subjective Subjective Pt is a very pleasant 77yo presenting to OT with significant swelling and immobility in her LUE fingers and thumb after DR england with ORIF on 02/21/23. Pt is very concerned about the swelling and stiffness in her fingers. Pt is referred to OT to address swelling and finger mobility only, will add rehab for her hand, wrist and forearm once her cast is removed and she is cleared to begin. Pt states she tripped over something outside and landed on her hand, underwent ORIF with Dr Gann and it seemed like every thing went well, she is not sure why her fingers / thumb are so swollen . Pt states she is having difficulty with all ADLs and IADLs due to inability to use LUE to assist and she is having difficulty with sleep due to discomfort and swelling . Pain Assessment Pain Present Pain Present Pain Reported Location LUE Hand and fingers Description Burning,Tightness,Pressure, Dull, Achy,Throbbing Intensity 5 Goniometric Comments Goniometric Comments Goniometric Comments 02/28/23 Pt is in her canst, unable to measure wrist and forearm. AROM of PIP joints: index is o-50, MF is 0-45, RF is 0-55, little finger is 0-60 . AROM of the MP joints IF is 0-30, MF is 0-30, RF is 0- 40, and little finger is 0-40. Thumb IP is 0-15. AROM of the elbow is -25-110 OT Objective Data Skin/Wounds/Edema Comments 02/28/23 Circumferential measurements were taken of pt' s fingers as follows: First phalanx: Index finger is 6.6cm, MF is 6 .6cm, RF is 6.3cm, little finger is 5.9cm PIP joint: Index finger is 6.8cm, MF is 7 .0cm, RF is 6.8cm, little finger is 5.8cm. 2nd phalanx: Index finger is 5.5cm, MF is 5 .7cm, RF is 5.4cm, and little finger is 4.8cm. Thumb proximal phalanx is 7. 2cm, IP is 7.5cm, DP is 6.2cm. OT Problems Problems Problems Decreased Strength,Decreased Range of Motion,Decreased Dexterity,Pain,Gripping, Pinching,Other Problems Comments Severe edema throughout LUE fingers and thumb Other Problems Opening Containers,Dressing, Computer,Sleeping Patient Potential Good Assessment Assessment Assessment Pt presents to OT with pain, swelling, weakness and limited AROM in her LUE due to DR england with ORIF and excessive swelling. Pt will benefit from skilled OT intervention to address the above in order to restore full, pain-free use of her hand. Occupational Therapy Treatment Plan - OP Potential Rehabilitation Potential Good Set Goals Goals Set with Patient Yes Goals Goals 1. Pt will be independent and compliant with HEP in order to resume full, pain-free use of the involved UE. 3 weeks 2. A decrease of at least .5cm from proximal phalanx of each LUE finger / thumb will be achieved in order to improve ability to move fingers and reduce risk for contractures. 3 weeks. 3. Pt will demonstrate full, pain-free AROM of the involved UE in order to improve ability to grasp and hold. 6 weeks 4. Pt will demonstrate pain- free printing assistant and pinch strength comparable to the uninvolved side in order to improve functional grasp, hold, reach, and lifting ability needed to complete self-care, leisure tasks, and work activities. 8 weeks. Treatment Plan Treatment Plan Evaluation,Edema Control,Joint Mobilization,Manual Therapy, Splinting,Wound Care/Scar Management,Therapeutic Exercise,Therapeutic Activities,Self Care/Home Management,Education Expected Frequency 1-2x Week Expected Duration 8-10 Weeks Home Program Home Program Home Program Initiated Home Program Specifics AROM and non resisted mm pumps for edema reduction of the LUE fingers and thumb, AROM of LUE elbow with focus on full extension. Certification Certification I Certify That: Therapy Services Provided, Therapy Plan Established, Therapy Plan Reviewed Recertification Information Recertification Information Initial Certification Date 02/28/23 Recertification Due Date 05/29/23 Reasons to Continue Skilled Therapy Initiated OT today to address severe edema and limited AROM in the LUE fingers, thumb, and elbow, will eventually begin rehab for wrist and forearm once cleared to do so. Rehabilitation Potential Good Continued Plan of Care and Interventions Please see above Provider Signature Shows Agreement With POC & Medical Necessity Physician Comment/Change Comment or Changes Physician NPI Number #
--- NOTE | 2023-05-29 00:13 | OT.OPODN ---
OT Outpatient Ortho Daily Note OT Outpatient Ortho Daily Note* Start: 02/27/23 17:30 Freq: Status: Active Protocol: Document 06/13/23 13:44 AMB (Rec: 06/13/23 13:48 AMB [id number]) E-signed By Anni Mosley, OTR/L, CLT, PASTRY FINISHER Type of Note Type of Note Type of Note Daily Note Visit Number [id number] Insurance Information Insurance Information Medicare B Outpatient History/Precautions Current Condition/Medical Diagnosis Referring Provider Carmela Gibbons PA-C Treatment Diagnosis DR eng[place] of LUE s/p ORIF, finger swelling Date of Onset 02/21/23 (DOS), 02/15/23 (DOI) Other Precautions PT'S IS IMMUNOCOMPRMISED PT WOULD LIKE MASKS TO BE WORN WHEN WORKING WITH HER TO PROTECT HER Other Conditions PMH: (copied from medical chart) Active Problems (Updated 02/27 @ 10:35 by Carmela Zamudio PA-C) Episodic lightheadedness ( Acute) R42 - Dizziness and giddiness (ICD-10) Fracture of left wrist (Acute) Date of injury 02/15/2023, open reduction internal fixation S62.102A - Fracture of unspecified carpal bone, left wrist, initial encounter for closed fracture (ICD-10) Medical History (Updated 02/27 @ 10:35 by Carmela Zamudio PA-C) Nonrheumatic aortic (valve) stenosis I35.0 - Nonrheumatic aortic ( valve) stenosis (ICD-10) 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, unspecified ( ICD-10) HTN (hypertension) I10 - Essential (primary) hypertension (ICD-10) Sjogrens syndrome M35.00 - Sjogren syndrome, unspecified (ICD-10) Thoracic aortic ectasia I77.810 - Thoracic aortic ectasia (ICD-10) Hypothyroidism (acquired) E03.9 - Hypothyroidism, unspecified (ICD-10) Hyponatremia E87.1 - Hypo-osmolality and hyponatremia (ICD-10) Osteopenia M85.80 - Other specified disorders of bone density and structure, unspecified site ( ICD-10) Disorder of bone and cartilage , unspecified M89.9 - Disorder of bone, unspecified (ICD-10) M94.9 - Disorder of cartilage, unspecified (ICD-10) Migraine G43.909 - Migraine, unspecified, not intractable, without status migrainosus ( ICD-10) 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 (ICD- 10) Premenstrual tension syndromes N94.3 - Premenstrual tension syndrome (ICD-10) Surgical History (Updated @ 07:48 by Xi Hall ~ FISHER CLAM, FISHER CLAM) History of open reduction and internal fixation (ORIF) procedure (02/21/23) Z98.890 - Other specified postprocedural states (ICD-10) H/O dilation and curettage Z98.890 - Other specified postprocedural states (ICD-10) Medical/Functional History Medical History Reviewed Yes Prior Level of Function/Mobility Full, pain-free use of her LUE Social History Employment Status Retired Hobbies Gardening Fitness Likes to walk / stays active Oriented Mental Status No Concerns Ortho Subjective Subjective Subjective Pt states her hands have both been more stiff today, not sure if the weather is to blame or just being busy with fall things. Pain Assessment Pain Present Pain Present Pain Reported Location LUE Hand and fingers Description Burning,Tightness,Pressure, Dull, Achy,Throbbing Intensity 3 OT OP Daily Ortho Note/Assessment Manual Therapy Manual Therapy Minutes (minutes) 18 Manual Therapy Comments Provided MT with focus on joint mobilization, AAROM and gentle PROM to LUE hand / fingers / thumb. Utilized LLPS for all PROM, also provided place and hold for composite flexion in order to promote functional grasp and release pattern. Ultrasound Ultrasound Minutes (minutes) 10 Ultrasound Location & Joint Position volar and dorsal fingers and hand to improve circulation / anti-inflammatory and promote tissue warmth in preparation for mobilization / stretch. Ultrasound Frequency & Mode 1 MHz Pulsed Intensity (w/cm2) 1.5 Total Occupational Therapy Time Occupational Therapy Minutes 28 Home Program Home Program Home Program Compliant Home Program Specifics 06/11/23 Provided training and practice in adductor release and self massage of palm using small rubber ball. 04/26/23 Added gripping and in- hand manipulation exs with yellow TP. 03/29/23 Pt was provided with training and practice in HEP for AROM of the LUE fingers, thumb, wrist, and forearm and review of non-resisted mm pumps. Following demo, pt is able to complete exs with minimal cues. Pt was provided with written instructions for home as well. IE: AROM and non resisted mm pumps for edema reduction of the LUE fingers and thumb, AROM of LUE elbow with focus on full extension. Compression sleeves to fingers and coban at MPJs for swelling. Range of Motion and Strength Wrist Range of Motion and Strength Wrist Range of Motion and Strength 04/12/23 AROM of the LUE wrist flexion is 25, ext is 5, UD is 5, RD is 5, pronation is 40, supination is 10, opposition is to the tip of the tip of the middle finger, composite fist is -5.5cm from tip of 3rd digit to DPC. Strength testing deferred at this time. 03/29/23 AROM of the LUE wrist flexion is 20, ext is 0, UD is 5, RD is 0, pronation is 35, supination is 10, opposition is to the tip of the tip of the index finger, composite fist is -6cm from tip of 3rd digit to DPC. Strength testing deferred at this time. Goniometric Comments Goniometric Comments Goniometric Comments 04/16/23 Pt demonstrating nice gains in wrist flexion to 30 deg, ext to 12 deg, RD is 7, UD is 6, pronation is 45, supination is 15. Composite fist is to -4.5cm from tip of 3rd digit to DPC. Opposition is now to tip of 4th digit. 03/20/23 AROM of PIP joints: index is 0-55, MF is 0-52, RF is 0-55, little finger is 0-60 . AROM of the MP joints IF is 0-35, MF is 0-35, RF is 0- 45, and little finger is 0-40. Thumb IP is 0-15. 02/28/23 Pt is in her cast, unable to measure wrist and forearm. AROM of PIP joints: index is o-50, MF is 0-45, RF is 0-55, little finger is 0-60 . AROM of the MP joints IF is 0-30, MF is 0-30, RF is 0- 40, and little finger is 0-40. Thumb IP is 0-15. AROM of the elbow is -25-110 Hand Pinch/[employer] Strength Hand Right [employer] Strength Position 1 (lbs) 32 Lateral Pinch Strength (lbs) 10 Three Point Pinch (lbs) 14 Left [employer] Strength Position 1 (lbs) 12 Lateral Pinch Strength (lbs) 4 Three Point Pinch (lbs) 6 OT Objective Data Hand Hand Dominance Right OT Problems Problems Problems Decreased Strength,Decreased Range of Motion,Decreased Dexterity,Pain,Gripping, Pinching,Other Problems Comments Severe edema throughout LUE fingers and thumb Other Problems Opening Containers,Dressing, Computer,Sleeping Patient Potential Good Assessment Assessment Assessment Pt pleased that she has been able to do some knitting, motivated to continue her rehab as she feels she is still progressing. Occupational Therapy Treatment Plan - OP Potential Rehabilitation Potential Good Set Goals Goals Set with Patient Yes Goals Goals 1. Pt will be independent and compliant with HEP in order to resume full, pain-free use of the involved UE. 3 weeks 2. A decrease of at least .5cm from proximal phalanx of each LUE finger / thumb will be achieved in order to improve ability to move fingers and reduce risk for contractures. 3 weeks. 3. Pt will demonstrate full, pain-free AROM of the involved UE in order to improve ability to grasp and hold. 6 weeks 4. Pt will demonstrate pain- free innovation manager and pinch strength comparable to the uninvolved side in order to improve functional grasp, hold, reach, and lifting ability needed to complete self-care, leisure tasks, and work activities. 8 weeks. Treatment Plan Treatment Plan Evaluation,Edema Control,Joint Mobilization,Manual Therapy, Splinting,Wound Care/Scar Management,Therapeutic Exercise,Therapeutic Activities,Self Care/Home Management,Education Expected Frequency 1-2x Week Expected Duration 8-10 Weeks Occupational Therapy Billing Units Treatment Minutes Timed Treatment Minutes 28 Total Treatment Minutes 28 Billing Units Manual Therapy 1 Ultrasound 1 Certification Certification I Certify That: Therapy Services Provided, Therapy Plan Established, Therapy Plan Reviewed
== END 2023-08-06 12:17 | disposition home or self-care (01) ==
PROVIDERS: PCP Family Medicine; Visit Provider Physician Assistant
DX: Z98.890 Other specified postprocedural states (principal); Z51.89 Encounter for other specified aftercare
CPT/HCPCS: 97033; 97035; 97110; 97140; 97165; 97530; X5282

== ENCOUNTER 2024-11-24 10:16 | Emergency (ER) | payer MEDICARE, BC, SELFPAY ==
[2024-11-24] VITALS (17 sets, daily range): BP systolic 118–150; BP diastolic 67–82; PULSE 69–85; RESP 14–24; TEMP 36.4; O2SAT 96–100; BMI 21.0
--- OUTSIDE RECORDS SUMMARY | 2024-11-24 10:18 | XMS_ITS | Continuity of Care Document ---
Author Organization [facility] Address [address] [place] [address] Phone Care Team Providers Care Infertility Medical Assistant Name Role Phone Shanae NAZARIO, Patti Unavailable Unavailable Allergies, Adverse Reactions, Alerts Substance Reaction Status Criticality Sulfa (Sulfonamide Antibiotics) Active No Information Medications Medication Instructions Dosage Effective Dates (start - stop) Status Comments Plaquenil 200 mg tablet take 1.5 (300MG) by oral route every day 300 MG - Active amlodipine 5 mg tablet take 1 tablet by oral route every day 5 MG - Active clobetasol 0.05 % topical cream apply by topical route 2 times every day a thin layer to the affected area(s) 0.00 - Active Miralax 17 gram oral powder packet take 1 packet by oral route 2 times every day mixed with 8 oz. water, juice, soda, coffee or tea 17 G - Active magnesium glycinate-magnesium oxide 120 mg capsule take 1 capsule by oral route 2 times every day - Active lisinopril 40 mg tablet take 1 tablet by oral route every day 40 MG - Active acyclovir 400 mg tablet take 1 tablet by oral route every 8 hours as needed 400 MG - Active atorvastatin 10 mg tablet take 1 tablet by oral route every day 10 MG - Active calcium citrate 250 mg tablet 630mg BID - Active Claritin 10 mg tablet take 1 tablet by oral route every day 10 MG - Active Synthroid 100 mcg tablet [...] day 300 MG - No Longer Active Probiotic 15 billion cell capsule - No Longer Active senna 8.6 mg capsule take 2 capsule by oral route every day 17.2 MG - No Longer Active Colace 100 mg capsule take 1 capsule by oral route 2 times every day at bedtime as needed 100 MG - No Longer Active Procedures Procedure Date Office/Outpatient Visit, Est Complex e/m visit add on Office/Outpatient Visit, Est Routine Venipuncture Specimen Handling Rbc Sed Rate, Automated Assay Of Serum Albumin Assay Of Creatinine Transferase (Ast) (Sgot) Alanine Amino (Alt) (Sgpt) CReactive Protein Complete Cbc WAuto Diff Wbc Office/Outpatient Visit, Est Routine Venipuncture Specimen Handling Rbc Sed Rate, Automated CReactive Protein Complete Cbc WAuto Diff Wbc Office/Outpatient Visit, Est Routine Venipuncture Specimen Handling [...] (Sgpt) Assay Of Ck (Cpk) CReactive Protein Advance Directives Directive Yes / No Effective Date File Name No Information Encounters Encounter Description Practice Location Reason(s) For Visit Diagnoses Date Provider Providers Copied on Encounter Office/Outpa tient Visit, Est [facility], [facility], [place], [address], [place] tel:[phone] [facility], Inflammatory Polyarthropat hy (chief complaint) Abnormal weight lossInflamma tory polyarthropa thyOsteopeni aSjogren's syndromeOthe r oysterman (current) drug therapyConst ipationPain in left ankle 4 Shanae Patti. [address], [address], [place], [address], [place]. tel:[phone] Referring Provider: Patti Jolly, [address], [place], [address]. tel:[phone] Office/Outpa tient Visit, Est [facility], [address], [place], [address], [place] tel:[phone] [facility], Inflammatory Polyarthropat hy (chief complaint) Abnormal weight lossInflamma tory polyarthropa thyOsteopeni aSjogren's syndromeOthe r oysterman (current) drug therapyConst ipationPain in left ankle - 4 Shanae Armstrong. [address], [address], [place], [address], [place]. [phone] Referring Provider: Patti Jolly, [address], [place], [address]. tel:[phone] Office/Outpa tient Visit, Est [facility], [address], [place], [address], [place] tel:[phone] [facility], Inflammatory Polyarthropat hy (chief complaint) Abnormal weight lossInflamma tory polyarthropa thyOsteopeni aSjogren's syndromeOthe r senior living (current) drug therapyConst ipationPain in left ankle Aug- 3 Shanae Armstrong. [address], [address], [place], [address], [place]. [phone] Referring Provider: Patti Jolly, [address], [place], [address]. tel:[phone] Office/Outpa tient Visit, Est [facility], [address], [place], [address], [place] tel:[phone] [facility], Inflammatory Polyarthropat hy (chief complaint) Abnormal weight lossInflamma tory polyarthropa thyOsteopeni aSjogren's syndromeOthe r oysterman (current) drug therapy Feb-0 3 Shanae Armstrong. [address], [address], [place], [address], [place]. [phone] Referring Provider: Patti Jolly, [address], [place], [address]. tel:[phone] Office/Outpa tient Visit, Est [facility], [address], [place], [address], [place] tel:[phone] [facility], Inflammatory Polyarthropat hy (chief complaint) Inflammatory polyarthropa thyOsteopeni aSjogren's syndromeOthe r senior living (current) drug therapyAbnor mal weight loss 2 Shanae Armstrong. [address], [address], [place], [address], [place]. tel:[phone] Referring Provider: Patti Jolly, [address], [place], [address]. tel:[phone] Office/Outpa tient Visit, Est [facility], [address], [place], [address], [place] tel:[phone] [facility], Inflammatory Polyarthropat hy (chief complaint) Drug induced constipation and bloatingInfl ammatory polyarthropa thyOsteopeni aSjogren's syndromeOthe r senior living (current) drug therapy 2 Shanae Armstrong. [address], [address], [place], [address], [place]. tel:[phone] Referring Provider: Patti Jolly, [address], [place], [address]. tel:[phone] Office/Outpa tient Visit, Est [facility], [address], [place], [address], [place] tel:[phone] [facility], Inflammatory Polyarthropat hy (chief complaint) Inflammatory polyarthropa thySjogren's syndromeOthe r oysterman (current) drug therapyOsteo peniaDrug induced constipation and bloating 2 Shanae Armstrong. [address], [address], [place], [address], [place]. tel:[phone] Referring Provider: Patti Jolly, [address], [place], [address]. tel:[phone] Office/Outpa tient Visit, Est [facility], [address], [place], [address], [place] tel:[phone] [facility], Inflammatory Polyarthropat hy (chief complaint) Inflammatory polyarthropa thySjogren's syndromeOthe r senior living (current) drug therapy 1 Shanae Armstrong. [address], [address], [place], [address], [place]. tel:[phone] Referring Provider: Patti Jolly, [address], [place], [address]. tel:[phone] Office/Outpa tient Visit, Est [facility], [address], [place], [address], [place] tel:[phone] [facility], Inflammatory Polyarthropat hy (chief complaint) Inflammatory polyarthropa thySjogren's syndromeOthe r oysterman (current) drug therapy 1 Shanae Armstrong. [address], [address], [place], [address], [place]. tel:[phone] Referring Provider: Patti Jolly, [address], [place], [address]. tel:[phone] [facility], [address], [place], [address], [place] tel:[phone] [facility], No Information 1 Shanae Armstrong. [address], [address], [place], [address], [place]. tel:[phone] Referring Provider: Patti Jolly, [address], [place], [address]. tel:[phone] Office/Outpa tient Visit, Est [facility], [address], [place], [address], [place] tel:[phone] [facility], Inflammatory Polyarthropat hy (chief complaint) Inflammatory polyarthropa thySjogren's syndromeOthe r oysterman (current) drug therapy 1 Shanae Armstrong. [address], [address], [place], [address], [place]. tel:[phone] Referring Provider: Patti Jolly, [address], [place], [address]. tel:[phone] Office/Outpa tient Visit, Est [facility], [address], [place], [address], [place] tel:[phone] [facility], Inflammatory Polyarthropat hy (chief complaint) Inflammatory polyarthropa thyRash and other nonspecific skin eruptionDry mouthPositiv e anti-Ro 1 Shanae Armstrong. [address], [address], [place], [address], [place]. tel:[phone] Referring Provider: Patti Jolly, [address], [place], [address]. tel:[phone] Office/Outpa tient Visit, Est [facility], [address], [place], [address], [place] tel:[phone] [facility], Inflammatory Polyarthropat hy (chief complaint) Inflammatory polyarthropa thyDry mouthPositiv e anti-RoRash and other nonspecific skin eruption 1 Shanae Armstrong. [address], [address], [place], [address], [place]. tel:[phone] Referring Provider: Patti Jolly, [address], [place], [address]. tel:[phone] Office/Outpa tient Visit, Est [facility], [address], [place], [address], [place] tel:[phone] [facility], Joint Pain (chief complaint) Dry mouthInflamm atory polyarthropa thyPositive anti-Ro Nov-2 0-202 0 Shanae Patti. [address], [address], [place], [address], [place]. tel:[phone] Referring Provider: Patti Jolly, [address], [place], [address]. tel:[phone] Office/Outpa tient Visit, New [facility], [address], [place], [address], [place] tel:[phone] [facility], Joint Pain (chief complaint) Polyarthralg ia Nov-0 6-202 0 Shanae Patit. [address], [address], [place], [address], [place]. tel:[phone] Referring Provider: Patti Jolly, [address], [place], [address]. tel:[phone] Family History Family Member Type Diagnosis Age At Onset No Information Immunizations Vaccine Date Status Comments COVID-19 Pfizer administered Source: Elizabeth mathis Unspecified Payers Payer name Insurance type Covered democrat ID Authortodda supa(s) Medicare MB [id number] [facility] [id number] Social History Type Description Quantity Date Captured [...] Percentile BMI percentile Pulse Ox Inhaled Ox 11:22 AM 66.50 in 58.967 kg (130.00 lbs) 20.6 7 kg/m eter (2) 137/76 mm[Hg] 97.50 F Chief Complaint And Reason For Visit From encounter dated '09/03/2024 11:15'. Inflammatory Polyarthropathy (chief complaint) Reason For Referral [...] Status Date Functional Assessmen t Pain Score 10/09 Instructions Date Instruction Additional Infor amalia No Information Assessments Type Assessment Date assessment Abnormal weight loss impression She continues to hav e weight loss despite stopping azathioprine. She relates the side effects from the medication are resolved so she is not sure why she is having ongoing weight loss. We discussed adding ensure drinks and working on upping her calories. If this continues, she may benefit from seeing a home care music therapist and discussing it further with primary care.This has stabilized. assessment Inflammatory polyarthropathy Aug impression The patient certainl y has evidence of an inflammatory arthritis. I wonder if this is related to a connective tissue disease such as Sjogren's syndrome based on her serologies. She only had a mildly elevated RF IgM which can also be seen in Sjogren's syndrome. She also has chilblains of the feet as well as lymphopenia. Her production broaching machine operator felt she had mild dry eye. She can likely be categorized as Sjogren's syndrome based on positive MINNIE, positive anti-Ro/La, sicca syndrome, inflammatory arthritis, and lymphopenia.Her inflammatory arthritis significantly improved on hydroxychloroquine. She could not tolerate methotrexate, leflunomide, or azathioprine. Her GI symptoms have resolved since stopping azathioprine. assessment Osteopenia impression She notes that her o steopenia [...] also discussed that Reclast is an option. assessment Sjogren's syndrome impression As noted above Margarita maldonado her presentation is consistent with Sjogren's [...] elected to continue OTC products for now. assessment Other oysterman (current) drug t herapy impression She is aware of the need for yearly eye exam on hydroxychloroquine and is up-to-date with this. assessment Constipation impression This has been a rece nt issue for her over the last 1.5 months. She has been started on MiraLAX and senna. She is now having issues with looser stools and bloating at the end of the day. We discussed that this is appropriate management for constipation. Even if it is related to her Sjogren's it is managed symptomatically. If she continues to have issues she may benefit from seeing a medicare sales executive for further management options. assessment Pain in left ankle impression She endorses an epis ode of left ankle swelling and pain that is improved somewhat with a 6-day course of prednisone. She notes this has been an ongoing issue since she was in her 60s. We will get an MRI for further evaluation of left ankle and foot.It improved so she elected to hold off on MRI. Patient Care Teams Name Effective Dates (start - stop) Status Members No Information
--- NOTE | 2024-11-24 10:44 | CRLHL7_ITS ---
For Patients: As a result of the Century Cures Act, medical imaging exams and procedure reports are released immediately into your electronic medical record. You may view this report before your referring provider. If you have questions, please contact your health care provider. INDICATION: Acute stroke, vision loss. TECHNIQUE: CTA head with contrast bolus tracking, 3D angiographic rendering using maximum intensity projection (MIP) and images permanently archived. FINDINGS: There is scattered intracranial atherosclerotic disease. There is normal opacification of the intracranial vasculature. There is no large vessel occlusion. No aneurysm is identified. IMPRESSION: No large vessel occlusion. Please note that all CT scans at this facility use dose modulation, iterative reconstruction, and/or weight-based dosing when appropriate to reduce radiation dose to as low as reasonably achievable. Dictated by Chepe Galdamez MD @ 11/24/2024 3:46:22 PM (Electronically Signed)
--- NOTE | 2024-11-24 10:44 | CRLHL7_ITS ---
For Patients: As a result of the Century Cures Act, medical imaging exams and procedure reports are released immediately into your electronic medical record. You may view this report before your referring provider. If you have questions, please contact your health care provider. INDICATION: Acute stroke, vision loss. TECHNIQUE: CTA neck with contrast bolus tracking, 3D angiographic rendering using maximum intensity projection (MIP) and images permanently archived. FINDINGS: There is carotid atherosclerosis. There is no significant carotid artery stenosis or dissection. There is no significant vertebral artery stenosis or dissection. The soft tissues of the neck are within normal limits. The cervical spine is in normal alignment. Degenerative changes are noted in the cervical spine. IMPRESSION: No significant carotid or vertebral artery stenosis or dissection. Please note that all CT scans at this facility use dose modulation, iterative reconstruction, and/or weight-based dosing when appropriate to reduce radiation dose to as low as reasonably achievable. Dictated by Chepe Galdamez MD @ 11/24/2024 3:45:06 PM (Electronically Signed)
--- NOTE | 2024-11-24 10:46 | ED.NURSE ---
Patient to CT via wheel chair. No neuro deficits at time of arrival to ED.
--- NOTE | 2024-11-24 10:50 | ED_ITS ---
HPI - General Adult General Date Seen: 11/24/24 Chief complaint: Eye Problems Stated complaint: Blurred vision, tightening in throat Time Seen by Provider: 11/24/24 10:43 History of Present Illness HPI narrative: 79-year-old female who has a history of aortic stenosis (on her observation, not impending surgery, per patient), hypothyroidism, hypertension. She does not have any previous history of vascular disease, coronary disease, stroke. She presents to the ER today from home with her . She was feeling normally this morning. She was in the kitchen for and some water about half are prior to arrival. While this was happening she suddenly had visual disturbance where her vision was going dark and schultz affecting both eyes. She does not really describe it as a curtain or a sweeping vision loss. It sounds like it was bilateral, not monocular. It lasted about 30 seconds or a minute and then resolved. There were no other definite symptoms with it. No palpitations. No chest pain. No fainting. No headache. No other numbness or weakness in her face, arms, or legs. Since the incident she has been feeling a little bit weak but no other symptoms. There was no seizure activity. No nausea. No chest pain. No palpitations. No headache or back pain. She has not had any previous episodes. No previous history of AFib or cardiac arrhythmias. She is not anticoagulated. No previous history of strokes, TIAs, or any vascular disease. Related Data Home Medications ?Medication ?Instructions ?Recorded ?Confirmed atorvastatin 10 mg tablet 10 mg PO QPM 02/15/23 05/15/23 hydroxychloroquine 200 mg tablet 300 mg PO DAILY 02/15/23 05/15/23 levothyroxine 100 mcg tablet 100 mcg PO QAM 02/15/23 05/15/23 acyclovir 400 mg tablet 400 mg PO TID PRN 02/19/23 05/15/23 calcium 500 mg tablet 500 mg PO DAILY 02/19/23 05/15/23 cholecalciferol (vitamin D3) 25 1,000 unit PO DAILY 02/19/23 05/15/23 mcg (1,000 unit) capsule docosahexaenoic acid (dha)-epa 1 cap PO DAILY 02/19/23 05/15/23 capsule docusate sodium 100 mg capsule 100 mg PO BID 02/19/23 05/15/23 (Colace) loratadine 10 mg tablet (Claritin) 10 mg PO DAILY 02/19/23 05/15/23 amlodipine 5 mg tablet 5 mg PO DAILY 05/15/23 05/15/23 lisinopril 20 mg tablet 20 mg PO DAILY 05/15/23 05/15/23 Previous Rx's ?Medication ?Instructions ?Recorded celecoxib 200 mg capsule (Celebrex) 200 mg PO QDAY #30 caps 02/22/23 lactulose 20 gram/30 mL oral 20 g (30 mL) PO TID PRN 07/25/23 solution constipation #120 mL Allergies Allergy/AdvReac Type Severity Reaction Status Date / Time latex Allergy Mild Rash Verified 11/24/24 11:11 adhesive tape Allergy Rash Verified 11/24/24 11:11 [facility] Medical History Nonrheumatic aortic (valve) stenosis ?I35.0 - Nonrheumatic aortic (valve) stenosis (ICD-10) Abnormality of aortic valve ?Q23.9 - Congenital malformation of aortic and mitral valves, unspecified (ICD-10) HTN (hypertension) ?I10 - Essential (primary) hypertension (ICD-10) Sjogrens syndrome ?M35.00 - Sjogren syndrome, unspecified (ICD-10) Thoracic aortic ectasia ?I77.810 - Thoracic aortic ectasia (ICD-10) Hypothyroidism (acquired) ?E03.9 - Hypothyroidism, unspecified (ICD-10) Hyponatremia ?E87.1 - Hypo-osmolality and hyponatremia (ICD-10) Osteopenia ?M85.80 - Other specified disorders of bone density and structure, unspecified site (ICD-10) Disorder of bone and cartilage, unspecified ?M89.9 - Disorder of bone, unspecified (ICD-10) ?M94.9 - Disorder of cartilage, unspecified (ICD-10) Migraine ?G43.909 - Migraine, unspecified, not intractable, without status migrainosus (ICD-10) 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 (ICD-10) Premenstrual tension syndromes ?N94.3 - Premenstrual tension syndrome (ICD-10) Surgical History History of temporal artery biopsy (04/22/08) ?Z98.890 - Other specified postprocedural states (ICD-10) History of phacoemulsification of cataract of left eye with intraocular lens implantation (07/30/18) ?Z98.42 - Cataract extraction status, left eye (ICD-10) ?Z96.1 - Presence of intraocular lens (ICD-10) History of phacoemulsification of cataract of right eye with intraocular lens implantation (08/13/18) ?Z98.41 - Cataract extraction status, right eye (ICD-10) ?Z96.1 - Presence of intraocular lens (ICD-10) History of open reduction and internal fixation (ORIF) procedure (02/21/23) ?Z98.890 - Other specified postprocedural states (ICD-10) H/O dilation and curettage ?Z98.890 - Other specified postprocedural states (ICD-10) Social History Smoking Status: Never smoker How often do you have a drink containing alcohol: never AUDIT-C Alcohol total score: 0 Non-prescribed substance use: denies use Caffeine: Yes service: No Exam Narrative: Exam Narrative: Constitutional: Appears well-developed and well-nourished. Alert. Conversant. Non toxic. Very polite. HENT: Head: Atraumatic. No depressed skull fracture, Raccoon Eyes, Mendoza's sign, or hemotympanum. Face normal. Nose: Nose normal. Mouth/Throat: Oral mucosa is clear and moist. no trismus. Pharynx normal. Tonsils symmetric. No tonsillar enlargement, erythema, or exudate. Eyes: Conjunctivae normal. EOM normal. Pupils equal, round, and reactive to light. No scleral icterus. Visual garcia are full to confrontation including the peripheral garcia of each eye. Neck: Normal range of motion. Neck supple. No tracheal deviation present. Cardiovascular: Normal rate, regular rhythm. No gallop. No friction rub. Loud systolic murmur heard. Symmetric radial artery pulses Pulmonary/Chest: Effort normal. No stridor. No respiratory distress. No wheezes. No rales. No rhonchi . No tenderness. Abdominal: Soft.No distension. No mass. No tenderness. No rebound. No guarding. Musculoskeletal: RUE: Normal range of motion. No tenderness. No deformity LUE: Normal range of motion. No tenderness. No deformity RLE: Normal range of motion. No edema. No tenderness. No deformity LLE: Normal range of motion. No edema. No tenderness. No deformity Lymph: No cervical adenopathy. Neurological: Mental status normal. Attention normal. Alert and oriented x3. GCS 15. Memory normal. Speech fluent. Cognition normal. Cranial Nerves intact II-XII except I did not formally test gag or visual acuity. EOMI. Palate elevates symmetrically and tongue protrudes in the midline. Strength: 5/5 trapezius on the right and left 5/5 deltoid on the right and left 5/5 biceps on the right and left 5/5 triceps on the right and left 5/5 project officer on the right and left 5/5 thumb opposition on the right and le ft 5/5 finger abduction on the right and le ft 5/5 hip flexors (L3) on the right and le ft 5/5 quadriceps (L4) on the right and lef t 5/5 tibialis anterior on the right and l eft 5/5 EHL (L5) on the right and left 5/5 gastrocnemius (S1) on the right and left 5/5 hamstring on the right and left Sensation intact to light touch in both upper extremities (C4-T1) Sensation intact to light touch in Both lower extremities (L4-S1). Finger to nose and coordination normal. Gait normal. NIHSS= 0 Skin: Skin is warm and dry. No rash noted. No pallor. Normal capillary refill. Psychiatric: Normal mood. Normal affect. Const: Vital Signs, click to edit/add: Vital Signs - 24 hr 11/24/24 10:22 11/24/24 11:05 11/24/24 11:06 Temperature 97.6 F Pulse Rate 77 77 Pulse Rate [Pulse Oximeter] 85 Respiratory Rate 20 18 Blood Pressure 118/82 Blood Pressure [Ri ght Upper Arm] 145/77 H Pulse Oximetry 100 99 98 Oxygen Delivery Me thod Room Air 11/24/24 11:15 11/24/24 11:17 11/24/24 11:44 Temperature Pulse Rate 73 75 72 Pulse Rate [Pulse Oximeter] Respiratory Rate 21 20 18 Blood Pressure 150/75 H 147/76 H Blood Pressure [Ri ght Upper Arm] Pulse Oximetry 100 100 100 Oxygen Delivery Me thod 11/24/24 11:45 11/24/24 11:46 11/24/24 11:47 Temperature Pulse Rate 72 72 71 Pulse Rate [Pulse Oximeter] Respiratory Rate 18 14 18 Blood Pressure 146/70 H 142/68 H Blood Pressure [Ri ght Upper Arm] Pulse Oximetry 100 100 98 Oxygen Delivery Me thod 11/24/24 12:00 11/24/24 12:01 11/24/24 12:02 Temperature Pulse Rate 69 70 69 Pulse Rate [Pulse Oximeter] Respiratory Rate 16 16 17 Blood Pressure 148/74 H Blood Pressure [Ri ght Upper Arm] Pulse Oximetry 99 100 99 Oxygen Delivery Me thod 11/24/24 12:15 11/24/24 12:17 11/24/24 12:30 Temperature Pulse Rate 73 72 74 Pulse Rate [Pulse Oximeter] Respiratory Rate 18 21 24 Blood Pressure 135/67 Blood Pressure [Ri ght Upper Arm] Pulse Oximetry 99 98 96 Oxygen Delivery Me thod 11/24/24 12:32 11/24/24 12:45 Temperature Pulse Rate 71 83 Pulse Rate [Pulse Oximeter] Respiratory Rate 16 20 Blood Pressure 142/72 H Blood Pressure [Ri ght Upper Arm] Pulse Oximetry 98 96 Oxygen Delivery Me thod Course Course ED Course: Patient arrived and was immediately placed into ER bed 8. Stroke team activation was triggered at the time of triage. I met the patient in ER bed a and did my initial neuro evaluation and brief HPI. At the time of presentation she was asymptomatic with no active stroke symptoms. However we did proceed with CT/CTA. Update-Head CT is normal. Intracranial CT angiogram does show evidence for some atherosclerosis but no significant blockages or stenoses. No LV AO. No stenosis requiring vascular surgery follow-up. CT angio of the patient's neck is somewhat limited because of collateral flow from vessels and artifact from fillings. Radiology report from [facility] indicates that there is potential for a right carotid dissection but they favor artifact. I reviewed the imaging with Stroke Neurology, Dr. young. He is highly confident that this is an artifactual finding and not a true dissection.. He and I discussed whether not MR imaging or MRA might be helpful for further clarification and he feels confident that no further imaging is necessary Recheck-I recheck the patient remained neurologically intact and asymptomatic. We. Neuro exam reveals no focal deficits. Vital Signs Vital signs: Initial Vital Signs Temperature 97.6 F 11/24/24 10:22 Temperature Source Temporal Artery Scan 11/24/24 10:22 Pulse Rate 85 11/24/24 10:22 Respiratory Rate 20 11/24/24 10:22 Blood Pressure 145/77 H 11/24/24 10:22 Blood Pressure Mean 99 11/24/24 10:22 Blood Pressure Position Sitting 11/24/24 10:22 Pulse Oximetry 100 11/24/24 10:22 Oxygen Delivery Method Room Air 11/24/24 10:22 Vital Signs Temperature 97.6 F 11/24/24 10:22 Pulse Rate 85 11/24/24 10:22 Respiratory Rate 20 11/24/24 10:22 Blood Pressure 145/77 H 11/24/24 10:22 Pulse Oximetry 100 11/24/24 10:22 Oxygen Delivery Method Room Air 11/24/24 10:22 Temperature 97.6 F 11/24/24 10:22 Pulse Rate 83 11/24/24 12:45 Respiratory Rate 20 11/24/24 12:45 Blood Pressure 142/72 H 11/24/24 12:32 Pulse Oximetry 96 11/24/24 12:45 Oxygen Delivery Method Room Air 11/24/24 10:22 Medical Decision Making MDM Narrative Medical decision making narrative: Very pleasant 79-year-old female with a history of hypertension, aortic stenosis, presenting to the ER today with an episode of neurologic symptoms, specifically an episode where she had bilateral a temporary vision darkening and near vision loss that lasted about 30 seconds to a minute and then resolved By the time she presented here to the ER symptoms were gone and vision was normal. Differential was broad Symptoms were bilateral and not monocular. This would argue against acute angle closure glaucoma, central retinal artery or retinal vein occlusion, or other more unilateral visual symptoms. She does not have any associated headache or other known history of vasculitis, but does have a history of Sjogren's. Consider possible temporal arteritis. Inflammatory markers including sed rate are low and reassuring. At this point I do not think she needs temporal artery biopsy or steroids Consider possible amaurosis fugax although history provided really does not suggest a curtain or clear visual field cut. CT angiogram and CT head were obtained and are normal. In discussion with Stroke Neurology from [facility], they do not feel that the patient's symptoms are likely indicative of an acute neurovascular event/TIA/stroke. Consider possible presyncope as a cause for her darkening vision, however she does not recall any chest pain, shortness of breath, palpitations, or any sensation that she was about to black out. Simply vision change that was temporary. EKG here in the ER shows sinus rhythm. Hemoglobin and blood counts are reassuring. EKG shows no ischemia and troponin is negative. She does have a history of aortic stenosis and does get surveillance echoes. I do think she needs outpatient follow-up for close repeat echo to see if is in bed any progression of her stenosis that could have been contributing to her symptoms she verbalizes her understanding. Discussed the differential and the workup so far with the patient and with her , in detail. They verbalized her understanding. At this point with reasonable clinical confidence I think she is safe for discharge. However she is cautioned to return to the ER with any recurring events including more episodes of visual disturbance or any other new symptoms such as headache, syncope, chest pain, palpitations. They will follow-up with her PCP within 1 week Lab Data Labs: Lab Results 11/24/24 11/24/24 Range/Units 10:40 10:44 WBC 5.45 (4.50-11.00) K/uL RBC 4.17 (4.00-5.20) m/uL Hgb 12.9 (12.0-16.0) gm/dL Hct 38.5 (33.0-51.0) % MCV 92 (80-100) fL MCH 31 (26-34) pg MCHC 34 (32-36) gm/dL RDW Coeff of Balaji 13.1 (11.5-15.5) % Plt Count 203 (140-440) K/uL Neut % (Auto) 66.7 (42.0-72.0) % Lymph % (Auto) 16.5 L (20-44) % [place] % (Auto) 13.9 H (0.0-11.0) % Eos % (Auto) 2.2 (0.0-7.0) % Baso % (Auto) 0.7 (0.0-3.0) % Neut # (Auto) 3.63 (1.7-7.0) K/uL Lymph # (Auto) 0.90 (0.90-2.90) K/uL [place] # (Auto) 0.80 (0.00-0.90) K/UL Eos # (Auto) 0.12 (0.00-0.50) K/uL Baso # (Auto) 0.04 (0.00-0.30) K/uL Abs Immat Gran (auto) 0.00 (0.00-0.30) K/uL Imm/Tot Granulo (auto) 0.0 % ESR 14 (2-20) mm/hr INR 0.97 (0.91-1.10) Sodium 130 L (135-149) mmol/L Potassium 4.5 (3.6-5.1) mmol/L Chloride 97 (96-114) mmol/L Carbon Dioxide 22 (20-32) mmol/L Anion Gap 11 (7-15) mEq/L BUN 17 (7-30) mg/dL Creatinine 0.7 (0.5-1.5) mg/dL Estimated Creat Clear 43.16 Estimated GFR 88 ml/min Glucose 95 (60-115) mg/dL Calcium 9.1 (8.4-10.6) mg/dL Troponin I < 0.01 L (0.01-0.04) ng/mL TSH 0.507 (0.270-4.200) uIU/mL POC Creatinine 0.8 (0.6-1.3) mg/dl Imaging Data CTA Head and Neck: Radiologist's impression: Impression: 1. Intracranial atherosclerosis. No flow-limiting stenosis, occlusion or aneurysm in the intracranial circulation. 2. 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 Extensive streak artifact from dental fillings limits evaluation of the cervical portions of the bilateral internal carotid arteries and bilateral vertebral arteries. Possible linear filling defect is seen in the proximal right internal carotid artery; while this is favored to be artifactual, a short segment dissection is difficult to exclude due to the factors described above. ECG Data Attestation: I personally reviewed and interpreted this ECG as follows: Interpretation: Normal sinus rhythm Rate: 70 CT: 192 QRS axis: Normal axis ST segment/T wave: QTc: 449 Discharge Plan Discharge Clinical Impression: Transient visual loss, Aortic stenosis Patient Disposition: Home, Self-Care Condition: Stable Instructions: Aortic Stenosis (ED) Additional Instructions: As we discussed, the cause of your symptoms is not clear so far. We do not see any signs of a stroke or dangerously blocked artery in your brain. Monitor for symptoms carefully. If you have more symptoms of vision loss, or if you have any other symptoms concerning for stroke such as numbness or tingling in your face, droopy face, trouble speaking, numbness or weakness in your arms or legs, problems with balance return to the ER right away. Also, if you have other symptoms such as chest pain, trouble breathing, dizzy spells, fainting, please come back to the ER right away. Please follow-up with your regular doctor in the next few days to recheck. Ask your regular doctor to order a repeat ultrasound of your heart to recheck your aortic valve. Prescriptions: No Action amlodipine 5 mg tablet 5 mg PO DAILY lisinopril 20 mg tablet 20 mg PO DAILY atorvastatin 10 mg tablet 10 mg PO QPM levothyroxine 100 mcg tablet 100 mcg PO QAM hydroxychloroquine 200 mg tablet 300 mg PO DAILY lactulose 20 gram/30 mL solution 20 g PO TID PRN (Reason: constipation) Qty: 120 0RF acyclovir 400 mg tablet 400 mg PO TID PRN Rx Instructions: X7 DAYS calcium 500 mg tablet 500 mg PO DAILY cholecalciferol (vitamin D3) 25 mcg (1,000 unit) capsule 1,000 unit PO DAILY docusate sodium [Colace] 100 mg capsule 100 mg PO BID loratadine [Claritin] 10 mg tablet 10 mg PO DAILY docosahexaenoic acid-epa Capsule 1 cap PO DAILY celecoxib [Celebrex] 200 mg capsule 200 mg PO QDAY Qty: 30 1RF Follow Up/Referrals: Genesis Andersen MD [Primary Care Provider] - Stand Alone Forms: [facility] Info Instructions
--- OUTSIDE RECORDS SUMMARY | 2024-11-24 11:02 | XMS_ITS | Clinical Summary ---
Author Organization [facility] Address [address] [place] [id number] Care Team Providers Care Production Operations Manager Name Role Phone Genesis Andersen MD Primary Care Prov ider Allergies Active Allergy Reactions Criticality Noted Date Comments Adhesive Tape-Silicones Rash 02/21/2017 Dog Dander Wheezing 06/21/2009 Erythromycin *Unknown 02/26/2023 Unsure if issue or what issue House Dust Mite Wheezing 06/21/2009 Latex Rash Low 08/13/2018 Metoprolol Dizziness 02/18/2023 She nearly passed out. Mold Wheezing 06/21/2009 Pollen Extracts Other - Describe In Comment Field 06/21/2009 Ragweed Other - Describe In Comment Field 06/21/2009 Sulfa (Sulfonamide Antibiotics) *Unknown 02/26/2023 As a child did not do well on medication Medications CALCIUM 500 MG TAB oNE DAILY 02/23/20 09 Active loratadine (CLARITIN) 10 mg tablet Take 1 tablet by mouth once daily. 0 07/01/20 18 Active hydrOXYchloroQUIN E (PLAQUENIL) 200 mg tablet Take 1.5 Tablets (300 mg) by mouth once daily. 0 12/30/19 21 Active cholecalciferol (Vitamin D) 1,000 unit capsule Take 1 Capsule (1,000 units) by mouth once daily. 0 12/30/19 21 Active omega 6-qcn-tay-fish oil (Fish Oil) 100-160-1,000 mg cap Daily Active Graduated Compression StockingsIndicati ons:Bilateral cold feet,Venous insufficiency of both lower extremities For personal use. Length: thigh Strength: 20-30 mmHg Circumference 2 Packet 06/18/20 Active medication order composerIndicatio ns:Chronic constipation rainbow lyte- multi- vitamin 0 08/20/20 Active medication order composer Magnesium citrate- calm 0 08/20/20 Active acyclovir (ZOVIRAX) 400 mg tabletIndications :Recurrent herpes simplex TAKE ONE TABLET THREE TIMES DAILY FOR SEVEN DAYS. HOLD until patient calls 21 Tablet 10 02/18/20 24 Active atorvastatin (LIPITOR) 10 mg tabletIndications :Risk of myocardial infarction or stroke 7.5% or greater in next 10 years Take 1 Tablet (10 mg) by mouth at bedtime. 90 Tablet 3 02/18/20 24 Active levothyroxine (SYNTHROID) 100 mcg tabletIndications :Hypothyroidism (acquired) Take 1 Tablet (100 mcg) by mouth before breakfast. 90 Tablet 4 02/18/20 24 Active polyethylene glycol (Miralax) 17 g per packet packet Mix 1 Packet in liquid then take by mouth two times daily. Active amLODIPine (NORVASC) 5 mg tabletIndications :Hypertension, unspecified type Take 1 Tablet (5 mg) by mouth once daily. 90 Tablet 3 02/18/20 24 Active clobetasol cream 0.05% (TEMOVATE) 0.05 % creamIndications: Chronic eczema Apply topically to affected area(s) two times daily. 30 g 02/18/20 24 Active metroNIDAZOLE (MetroCream) 0.75 % creamIndications: Rosacea Apply topically to affected area(s) two times daily. HOLD until patient calls 45 g 8 02/18/20 24 Active lisinopriL (PRINIVIL; ZESTRIL) 20 mg tabletIndications :Hypertension, unspecified type Take 1 Tablet (20 mg) by mouth once daily. 90 Tablet 3 02/18/20 24 Active Active Problems Problem Noted Date Diagnosed Date Fracture of left wrist 04/23/2024 Osteopenia 04/01/2024 Rheumatoid arthritis, involv ing unspecified site, unspecified whether rheumatoid factor present 07/24/2023 Labile blood pressure 03/03/2023 Overview (03/03/2023): Goal less than 130/80 History of open reduction an d internal fixation (ORIF) procedure 02/21/2023 Nonrheumatic aortic valve stenosis 02/18/2023 Overview (02/18/2023): The aortic valve is sclerotic, mild to moderate stenosis (peak velocity 2.6 m/s, mean gradient 15 mmHg, VANIA 1.53 cm^2, DI 0.46) and trivial regurgitation. Valve previously characterized as bicuspid. This cannot be appreciated on today's study where all three leaflets appear independent. The noncoronary cusp does appear relatively fixed on todays study in 2020. 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 Roy, GI), Colonoscopy in December 2003 showed a 7-mm hyperplastic polyp in the hepatic flexure and small internal hemorrhoids. She had a repeat colonoscopy in May 2009 that showed a 2-mm hyperplastic polyp in the sigmoid. Most recent colonoscopy in 2011, report reviewed. Bowel prep quality was described as good. Entire colon appeared normal at that time. Pediatric colonoscope was used which is patient's preference. Thoracic aortic ectasia 05/01/2019 Hypothyroidism (acquired) 02/04/2018 Hyponatremia 08/20/2016 Overview (08/20/2019): Hyponatremia: Discussed that labs are suggestive of SIADH. We discussed drinking around 1.5 L of water per day. Discussed getting serum sodium in 5 to 7 days after. Her serum sodium is around 129, if we can maintain around 130 that would be really good. And she is asymptomatic right now. Patient is hesitant about salt tablet given her history ofr hypertension. If needed we will seek opinion from nephrology. She will see me in about 4 to 6 months time. She will call if any questions concerns in the interim. If sodium stays stable then she can follow-up with primary care provider as well. She verbalized understanding of the above, and is agreeable to the plan. 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 Overview (04/23/2024): 3 EPISODES 3 EPISODES Other forms of migraine, wit hout mention of intractable migraine without mention of status migrainosus 12/01/2006 Overview (12/01/2006): OPTICAL Encounters Date Type Department Care Team Description 10/08/[address] [place] [address] Julio Cesar Ball MD Chest tighten 09/14/2024 1:40 PM COMPONENT TECHNICIAN Phone Office Visit [facility] [address] [place] [address] Vivienne Graves PA Covid-19 Positive Result 09/14/2024 Travel from Last 3 Months Immunizations Name Administration Dates Next Due AMB INFLUENZA IIV3 (AGE 65+ YRS) PF (Flu Clinic Only) 07/03/2019,07/09/2018,07/17/2017 AMB Influenza, IIV3 (Age >=3 years)(Flu Clinic Only) 06/24/2013 Amb Influenza, Inact (High-d ose) (Flu Clinic Only) 07/20/2014 Amb Influenza, Inactivated A IIV4 (Age 65+ Years) Preserv Free 06/27/2020 COVID-19 vaccine (Moderna 100mcg/0.5mL) PF, MDV 12/29/2021 COVID-19 vaccine (Pfizer-Bio NTech 30mcg/0.3mL) PF, MDV 12/10/2020,11/19/2020 DTaP 01/27/2009 Hepatitis A (Adult) 08/05/2012,12/30/2001 Hepatitis B (Adult) 07/23/2002,01/30/2002,2001 Inactivated Polio Vaccine 12/30/2001 Influenza Virus, Unspecified 07/03/2019, 07/09/2018,07/17/2017,07/01,07/19/2015,07/20/2014,06/24/20 13,09/05/2012,08/09/2003 Influenza, High-dose Inactivated 07/19/2016,07/01,07/20/2014 Influenza, High-dose Quadriv alent Inactivated 08/02/2023,07/19/2022,07/01/2021 Influenza, IIV3 (Age >=3 years) 06/24/2013,09/05,08/09/2003 Influenza, Inactivated IIV3 (Age 65+ Years) Preserv Free 07/17/2017 Pneumococcal Poly,23-Valent (Pneumovax) 02/12/2013 Pneumococcal conj 13-Valent (Prevnar 13) 07/29/2017 RSV, Recombinant ADJ Reconst ituted (Arexvy 120MCG/0.5mL) 08/13/2023 TD, UNSPECIFIED 05/01/1999 Td (Age >=7 Years) 05/01/1999 Tdap 07/06/2019,01/27/2009 07/06/2029 Typhoid (injectable) 12/30/2001 Zoster (Shingrix-RZV, recombinant) 09/25/2019, Zoster (Zostavax-ZVL, live) 02/14/2011 Family History Medical History Relation Name Comments Cancer-prostate Brother 1 Charles Psychiatric illness Brother 1 Charles bipolar Cancer-prostate Brother 2 Evangelist Good Health Daughter Anemia Father pernicous anemi a Cancer Father BLADDER Cancer-prostate Father Heart Disease Father ANGINA, AORTIC STENOSIS, TRIPLE BYPASS, valuopasty Heart Disease Mother angina Osteoporosis Mother Other Mother dementia with p arkinsonism symptoms Good Health Son 2 Cancer-breast No Family History Cancer-ovarian No Family History Relation Name Status Comments Brother 1 Charles Alive Brother 2 Evangelist Alive Daughter Alive Father Mother Son 1 (Age 7 hours) hyali n membraine disease Son 2 Alive Social History Tobacco Use Types Packs/Day Years Used Date Smoking Tobacco: Never Smokeless Tobacco: Never Tobacco Cessation:Counseling Given: Yes Alcohol Use Standard Drinks/Week Comments Not Currently 0 (1 standard drink = 0.6 oz pur e alcohol) PHQ-2 Answer Date Recorded PHQ-2 TOTAL SCORE 0 02/18/2024 Social Connections Answer Date Recorded Do you often feel lonely or isolated from those around you? 0 04/23/2024 Financial Resource Strain Answer Date R ecorded Difficulty of Paying Living Expenses 3 04/23/2024 Difficulty of Paying Living Expenses Not on file 04/23/2024 Food Insecurity Answer Date Recorded Do you worry your food will run out before you are able to buy more? 1 04/23/2024 Transportation Needs Answer Date Record ed Does lack of transportation keep you from medica l appointments? 1 04/23/2024 Does lack of transportation keep you from work, meetings or getting things that you need? 1 04/23/2024 Housing Stability Answer Date Recorded What is your housing situation today? 1 04/23/2024 Utilities Answer Date Recorded Do you have trouble paying f or utilities (for example, heat, electricity, water, phone)? 1 04/23/2024 Comments No Sex and Gender Information Value Date Recorded Sex Assigned at Not on file Legal Sex Female 5:27 AM COMPONENT TECHNICIAN Gender Identity Not on file Sexual Orientation Not on file Obstetrics History Para Term AB IAB SAB Ectopic Multiple Livin g Live Births 3 3 2 Date Outcome GA Total Labor Labor/2nd/3rd Weight Sex Type Anes PTL Mariama A1 A5 Name Clin Para Para Para Last Filed Vital Signs Vital Sign Reading Time Taken Comments Blood Pressure 148/60 06/25/2024 12:45 PM CDT Pulse 82 06/25/2024 12:45 PM CDT Temperature 36.9 C (98.5 F) 04/23/2024 1:41 PM CDT Respiratory Rate 18 05/22/2021 1:59 PM CDT Oxygen Saturation 100% 06/25/2024 12:45 PM CDT Inhaled Oxygen Concentration - - Weight 59 kg (130 lb) 06/25/2024 12:45 PM CDT Height 165.1 cm (5' 5) 06/25/2024 12:45 PM CDT Body Mass Index 21.63 06/25/2024 12:45 PM CDT Plan of Treatment Health Maintenance Due Date Last Done Comments Influenza for age 65+ 05/31/2024 08/02/2023 , 07/19/2022, 07/01/2021, Additional history exists COVID-19 vaccine series ( season) 2024 06/22/2024, 01/08/2024, 07/12/2023, Additional history exists Depression screening for age 12+ 02/17/2025 02/18/2024, 02/18/2023, 02/12/2023, Additional history exists Medicare Wellness for age 65+ 02/18/2025, 02/12/2023, 02/06/2022, Additional history exists BMI (ht and wt on same day) for age 18+ 06/25/2025 06/25/2024, 02/18/2024, 08/20/2023, Additional history exists Tetanus booster 07/06/2029 07/06/2019, 12/31, 05/01/1999, Additional history exists Pneumococcal series for age 50+ Completed 7, 02/12/2013 Hepatitis C screening for ag e 18-79 Completed 06/30/2019 Tdap Completed 07/06/2019, 01/27/2009 Zoster (shingles) series for age 50+ Completed 09/25/2019, 07/15/2019, 02/14/2011 RSV vaccine for adults or Completed 08/13/2023 DEXA/DXA scan for age 65+ Completed 2023, 08/16/2021, 05/19/2018, Additional history exists Procedures Procedure Name Priority Date/Time Associated Diagnosis Comments XR DXA BONE DENSITY 2 SITES AXIAL Routine 03/23/2024 12:04 PM CDT Post-menopausal ANTI HCV Routine 06/30/2019 10:50 AM CDT Encounter for hepatitis C screening test for low risk patient from Last 3 Months or Most Recently Relevant to Health Maintenance Results * (ABNORMAL) XR DXA BONE DENSITY 2 SITES AXIAL (03/23/2024 12:04 PM CDT) Anatomical Region Laterality Modality Spine, HIPS, HIPL, HIPR Other Impressions 03/28/2024 5:44 PM CDT Osteoporosis. RECOMMENDATIONS: The National Osteoporosis Foundation recommends pharmacologic treatment for patients with T-scores of -2.5 or less, patients with prior history of fragility fractures, or patients with 10-year probability of greater than 3% at hips or greater than 20% of suffering major osteoporotic fractures. Recommend continued optimization of calcium and vitamin D intake through dietary means and/or supplementation and regular exercise. Consider pharmacologic therapy for osteoporosis. Follow-up bone density reading in 2 years if therapy initiated to assess therapeutic efficacy. Sugey Cain PA-C [facility] 03/28/2024 Narrative 03/28/2024 5:44 PM CDT For Patients: Results are automatically released to your [facility] ([employer]) account once available, in compliance with federal regulations. This means that you may see your results before your provider has had a chance to review them. Please allow 2-3 business days for your provider to comment on the results. XR DXA Bone Mineral Density (BMD) EXAM LOCATION: [address] [address] PATIENT NAME: Sheela Pitts DATE OF : 1945 EXAM DATE: 03/23/2024 REQUESTING PROVIDER: Genesis Andersen MD GENDER AT : female HEIGHT: 5' 5.5 (02/18/2024) WEIGHT: 131 lb 12.8 oz (02/18/2024) MENOPAUSAL STATUS: Postmenopausal RACE/ETHNICITY: White RISK FACTORS: Family History of Osteoporosis, Rheumatoid Arthritis, and White Race CURRENT MEDICATION FOR BONE LOSS: NONE INDICATION: Follow-up of existing osteopenia and Post-Menopause COMPARISON DATE(S): 2020 DXA scans are compared to prior studies for a patient only when the two (or more) studies were performed on the same scanner. It is not possible to compare data generated on one scanner to data from another because there are not standards in DXA equipment. This applies even if the two scanners are made by the same plant physiology teacher. PROCEDURE: Dual-energy x-ray absorptiometry performed with routine technique. Reporting is completed in the form of a T-score. The T-score represents the standard deviation from peak bone mass based on young healthy adult. A Z-score is used for diagnosis in premenopausal women, and for men under the age of 50. FINDINGS: RESULT LUMBAR SPINE L1 - L4 BMD: 0.863 g/cm2 T-Score: - 2.7 Z-Score: - 0.7 Change from prior in 2020: Decrease 5.1%. RESULTS FEMUR Left femoral neck BMD: 0.760 g/cm2 T-Score: - 2.0 Z-Score: + 0.2 Change from prior in 2020: Decrease 1.9%. Right femoral neck BMD: 0.750 g/cm2 T-Score: - 2.1 Z-Score: + 0.1 Change from prior in 2020: Decrease 5.2%. Left hip BMD: 0.795 g/cm2 T-Score: - 1.7 Z-Score: + 0.3 Change from prior in 2020: Decrease 1.1%. Right hip BMD: 0.722 g/cm2 T-Score: - 1.9 Z-Score: + 0.2 Change from prior in 2020: Decrease 4.0%. WHO criteria: Normal: T-score at or above -1 SD Osteopenia: T-score between -1.1 and -2.4 SD Osteoporosis: T-score at or below -2.5 SD FRAX RISK CALCULATION (USED FOR OSTEOPENIA ONLY): 10-year probability of major osteoporotic fracture: 25.4%. 10-year probability of hip fracture: 7.9%. Genesis Andersen MD DEXA Fi nal Result * ANTI HCV (06/30/2019 10:50 AM CDT) [facility] HEPATITIS C ANTIBODY Non-React lesa Non-React lesa 06/30/2019 5:50 PM CDT [facility] Comment:Antibodies to HCV no t detected; does not exclude the possibility of exposure to HCV. Blood BLOOD SPECIMEN / Unknown Non-Lab Venipuncture / Unknown 06/30/2019 10:50 AM CDT 06/30/2019 10:50 AM CDT us Genesis Andersen MD SEND OUTS Fi nal Result [facility] [address] [place] [address], [place] from Last 3 Months or Most Recently Relevant to Health Maintenance Insurance MEDICARE [place] ONLY [facility] MEDICARE PART B HB ONLY MEDICARE PART A HB ONLY Advance Directives Documents on File Type Date Recorded Patient Registration Manager Expl anation Healthcare Directive 10/23/2024 10:21 AM s igned 08/10/24 Healthcare Directive 05/14/2018 2:02 PM HE ALTHCARE DIRECTIVE, [facility], 12/11/07 Care Teams Production Operations Manager Relationship Specialty Start Date End Date Genesis Andersen MD [address] [place] [address] PCP - General 02/07/06
--- OUTSIDE RECORDS SUMMARY | 2024-11-24 11:03 | XMS_ITS | Continuity of Care Document ---
Author Organization [facility] Address [address] [place] [address] Phone Care Team Providers Care Snowsport Instructor Name Role Phone Shanae NAZARIO, Patti Unavailable [...] tient Visit, Est [facility], [facility], [place], [address], [place] tel:[phone] [facility], Inflammatory Polyarthropat hy (chief complaint) Abnormal weight lossInflamma tory polyarthropa thyOsteopeni aSjogren's syndromeOthe r director long term care (current) drug therapyConst ipationPain in left ankle 4 Shanae Patti. [address], [address], [place], [address], [place]. tel:[phone] Referring Provider: Patti Jolly, [address], [place], [address]. tel:[phone] Office/Outpa tient Visit, Est [facility], [address], [place], [address], [place] tel:[phone] [facility], Inflammatory Polyarthropat hy (chief complaint) Abnormal weight lossInflamma tory polyarthropa thyOsteopeni aSjogren's syndromeOthe r director long term care (current) drug therapyConst ipationPain in left ankle - 4 Shanae Armstrong. [address], [address], [place], [address], [place]. [phone] Referring Provider: Patti Jolly, [address], [place], [address]. tel:[phone] Office/Outpa tient Visit, Est [facility], [address], [place], [address], [place] tel:[phone] [facility], Inflammatory Polyarthropat hy (chief complaint) Abnormal weight lossInflamma tory polyarthropa thyOsteopeni aSjogren's syndromeOthe r group home (current) drug therapyConst ipationPain in left ankle Aug- 3 Shanae Armstrong. [address], [address], [place], [address], [place]. [phone] Referring Provider: Patti Jolly, [address], [place], [address]. tel:[phone] Office/Outpa tient Visit, Est [facility], [address], [place], [address], [place] tel:[phone] [facility], Inflammatory Polyarthropat hy (chief complaint) Abnormal weight lossInflamma tory polyarthropa thyOsteopeni aSjogren's syndromeOthe r director long term care (current) drug therapy Feb-0 3 Shanae Armstrong. [address], [address], [place], [address], [place]. [phone] Referring Provider: Patti Jolly, [address], [place], [address]. tel:[phone] Office/Outpa tient Visit, Est [facility], [address], [place], [address], [place] tel:[phone] [facility], Inflammatory Polyarthropat hy (chief complaint) Inflammatory polyarthropa thyOsteopeni aSjogren's syndromeOthe r group home (current) drug therapyAbnor mal weight loss 2 Shanae Armstrong. [address], [address], [place], [address], [place]. tel:[phone] Referring Provider: Patti Jolly, [address], [place], [address]. tel:[phone] Office/Outpa tient Visit, Est [facility], [address], [place], [address], [place] tel:[phone] [facility], Inflammatory Polyarthropat hy (chief complaint) Drug induced constipation and bloatingInfl ammatory polyarthropa thyOsteopeni aSjogren's syndromeOthe r group home (current) drug therapy 2 Shanae Armstrong. [address], [address], [place], [address], [place]. tel:[phone] Referring Provider: Patti Jolly, [address], [place], [address]. tel:[phone] Office/Outpa tient Visit, Est [facility], [address], [place], [address], [place] tel:[phone] [facility], Inflammatory Polyarthropat hy (chief complaint) Inflammatory polyarthropa thySjogren's syndromeOthe r director long term care (current) drug therapyOsteo peniaDrug induced constipation and bloating 2 Shanae Armstrong. [address], [address], [place], [address], [place]. tel:[phone] Referring Provider: Patti Jolly, [address], [place], [address]. tel:[phone] Office/Outpa tient Visit, Est [facility], [address], [place], [address], [place] tel:[phone] [facility], Inflammatory Polyarthropat hy (chief complaint) Inflammatory polyarthropa thySjogren's syndromeOthe r group home (current) drug therapy 1 Shanae Armstrong. [address], [address], [place], [address], [place]. tel:[phone] Referring Provider: Patti Jolly, [address], [place], [address]. tel:[phone] Office/Outpa tient Visit, Est [facility], [address], [place], [address], [place] tel:[phone] [facility], Inflammatory Polyarthropat hy (chief complaint) Inflammatory polyarthropa thySjogren's syndromeOthe r director long term care (current) drug therapy 1 Shanae Armstrong. [address], [address], [place], [address], [place]. tel:[phone] Referring Provider: Patti Jolly, [address], [place], [address]. tel:[phone] [facility], [address], [place], [address], [place] tel:[phone] [facility], No Information 1 Shanae Armstrong. [address], [address], [place], [address], [place]. tel:[phone] Referring Provider: Patti Jolly, [address], [place], [address]. tel:[phone] Office/Outpa tient Visit, Est [facility], [address], [place], [address], [place] tel:[phone] [facility], Inflammatory Polyarthropat hy (chief complaint) Inflammatory polyarthropa thySjogren's syndromeOthe r director long term care (current) drug therapy 1 Shanae Armstrong. [address], [address], [place], [address], [place]. tel:[phone] Referring Provider: Patti Jolly, [address], [place], [address]. tel:[phone] Office/Outpa tient Visit, Est [facility], [address], [place], [address], [place] tel:[phone] [facility], Inflammatory Polyarthropat hy (chief complaint) Inflammatory polyarthropa thyRash and other nonspecific skin eruptionDry mouthPositiv e anti-Ro 1 Shanae Armstrong. [address], [address], [place], [address], [place]. tel:[phone] Referring Provider: Patti Jolly, [address], [place], [address]. tel:[phone] Office/Outpa tient Visit, Est [facility], [address], [place], [address], [place] tel:[phone] [facility], Inflammatory Polyarthropat hy (chief complaint) Inflammatory polyarthropa thyDry mouthPositiv e anti-RoRash and other nonspecific skin eruption 1 Shanae Armstrong. [address], [address], [place], [address], [place]. tel:[phone] Referring Provider: Patti Jolly, [address], [place], [address]. tel:[phone] Office/Outpa tient Visit, Est [facility], [address], [place], [address], [place] tel:[phone] [facility], Joint Pain (chief complaint) Dry mouthInflamm atory polyarthropa thyPositive anti-Ro Nov-2 0-202 0 Shanae Patti. [address], [address], [place], [address], [place]. tel:[phone] Referring Provider: Patti Jolly, [address], [place], [address]. tel:[phone] Office/Outpa tient Visit, New [facility], [address], [place], [address], [place] tel:[phone] [facility], Joint Pain (chief complaint) Polyarthralg ia Nov-0 6-202 0 Shanae Patti. [address], [address], [place], [address], [place]. tel:[phone] Referring Provider: Patti Jolly, [address], [place], [address]. tel:[phone] Family History Family Member Type Diagnosis Age At Onset No Information Immunizations Vaccine Date Status Comments COVID-19 Pfizer administered Source: Elizabeth mathis Unspecified Payers Payer name Insurance type Covered democrat ID Authortodda supa(s) Medicare MB [id number] [facility] [id number] Social History Type Description Quantity Date Captured [...] continues, she may benefit from seeing a estate tax examiner and discussing it further with primary care.This [...] the feet as well as lymphopenia. Her piano mover felt she had mild dry eye. She [...] continue OTC products for now. assessment Other director long term care (current) drug t herapy impression She is [...] issues she may benefit from seeing a border patrol officer for further management options. assessment Pain in [...]
[2024-11-24 11:18] LABS: Basophils Absolute Auto 0.04 K/uL (0.00-0.30); Basophils Percent Auto 0.7 % (0.0-3.0); Eosinophils Absolute Auto 0.12 K/uL (0.00-0.50); Eosinophils Percent Auto 2.2 % (0.0-7.0); Hematocrit 38.5 % (33.0-51.0); Hemoglobin* 12.9 gm/dL (12.0-16.0); Lymphocytes Percent Auto 16.5 % (20-44); Mean Corpuscular HGB Conc 34 gm/dL (32-36); Mean Corpuscular Hemoglobin 31 pg (26-34); Mean Corpuscular Volume 92 fL (80-100); Monocytes Percent Auto 13.9 % (0.0-11.0); Neutrophils Absolute Auto 3.63 K/uL (1.7-7.0); Neutrophils Percent Auto 66.7 % (42.0-72.0); Platelet Count* 203 K/uL (140-440); RDW Coefficient of Variation % 13.1 % (11.5-15.5); Red Blood Count 4.17 m/uL (4.00-5.20); White Blood Count* 5.45 K/uL (4.50-11.00)
[2024-11-24 11:19] LABS: Chloride* 97 mmol/L (96-114); Slide Review Reflex No; Sodium* 130 mmol/L (135-149)
[2024-11-24 11:20] LABS: Potassium* 4.5 mmol/L (3.6-5.1)
[2024-11-24 11:22] LABS: Blood Urea Nitrogen* 17 mg/dL (7-30); Creatinine* 0.7 mg/dL (0.5-1.5); Est. Creatinine Clearance* 43.16; Estimated Glomerular Filt Rate 88 ml/min
[2024-11-24 11:23] LABS: Calcium* 9.1 mg/dL (8.4-10.6); Carbon Dioxide* 22 mmol/L (20-32); Glucose* 95 mg/dL (60-115); INR 0.97 (0.91-1.10); Prothrombin Time 13.6 Seconds
[2024-11-24 11:30] LABS: Anion Gap 11 mEq/L (7-15)
[2024-11-24 11:36] LABS: Troponin I* < 0.01 ng/mL (0.01-0.04)
--- NOTE | 2024-11-24 11:47 | ED.NURSE ---
POC Creat 0.8
[2024-11-24 12:23] LABS: Erythrocyte SedimentationRate* 14 mm/hr (2-20)
[2024-11-24 12:48] LABS: TSH With Reflex to FT4* 0.507 uIU/mL (0.270-4.200)
[2024-11-24 13:23] LABS: Creatinine, Point-of-Care* 0.8 mg/dl (0.6-1.3)
== END 2024-11-24 13:58 | disposition home or self-care (01) ==
PROVIDERS: Emergency Provider Emergency Medicine; PCP Family Medicine
DX: H53.129 Transient visual loss, unspecified eye (principal); I35.0 Nonrheumatic aortic (valve) stenosis
CPT/HCPCS: 36415; 70450; 70496; 70498; 71046; 80048; 82565; 84443; 84484; 85025; 85610; 85651; 93005; 99283; 99285; 99291; Q9967

== ENCOUNTER 2025-08-26 13:43 | Observation (INO) | payer MEDICARE, BC, SELFPAY ==
[2025-08-26] VITALS (9 sets, daily range): BP systolic 127–168; BP diastolic 66–85; PULSE 68–85; RESP 16–25; TEMP 35.7–36.7; O2SAT 96–99; BMI 19.7; BMI 19.8; BMI 19.9
--- OUTSIDE RECORDS SUMMARY | 2025-08-26 13:47 | XMS_ITS | Clinical Summary ---
Author Organization [facility] Address [address] [place] [address] Care Team Providers Care Staff Services Manager Name Role Phone Genesis Andersen MD [...] Medications CALCIUM 500 MG TAB oNE DAILY 9 Active loratadine (CLARITIN) 10 mg tablet Take 1 tablet by mouth once daily. 0 8 Active hydrOXYchloroQUIN E (PLAQUENIL) 200 mg tablet Take 1.5 Tablets (300 mg) by mouth once daily. 0 1 Active cholecalciferol (Vitamin D) 1,000 unit capsule Take 1 Capsule (1,000 units) by mouth once daily. 0 1 Active omega 8-ebp-rdq-fish oil (Fish Oil) 100-160-1,000 mg cap Daily Active medication order composerIndicatio ns:Chronic constipation rainbow lyte- multi- vitamin 0 3 Active medication order composer Magnesium citrate- calm 0 3 Active polyethylene glycol (Miralax) 17 g per packet packet Mix 1 Packet in liquid then take by mouth two times daily. Active acyclovir 400 mg tabletIndications :Recurrent herpes simplex TAKE ONE TABLET THREE TIMES DAILY FOR SEVEN DAYS. HOLD until patient calls 21 Tablet 10 5 Active amLODIPine 5 mg tabletIndications :Hypertension, unspecified type Take 1 Tablet (5 mg) by mouth once daily. 90 Tablet 3 5 Active atorvastatin 10 mg tabletIndications :Risk of myocardial infarction or stroke 7.5% or greater in next 10 years Take 1 Tablet (10 mg) by mouth at bedtime. 90 Tablet 3 5 Active levothyroxine 100 mcg tabletIndications :Hypothyroidism (acquired) Take 1 Tablet (100 mcg) by mouth before breakfast. 90 Tablet 4 5 Active lisinopriL 20 mg tabletIndications :Hypertension, unspecified type Take 1 Tablet (20 mg) by mouth once daily. 90 Tablet 3 5 Active metroNIDAZOLE (MetroCream) 0.75 % creamIndications: Rosacea Apply topically to affected area(s) two times daily. HOLD until patient calls 45 g 8 5 Active clobetasol 0.05 % creamIndications: Chronic eczema Apply topically to affected area(s) two times daily. HOLD until patient calls 30 g 1 5 Active sertraline (ZOLOFT) 25 mg tabletIndications :Stress Take 1 Tablet (25 mg) by mouth once daily in the morning. 60 Tablet 1 5 Active Active Problems Problem Noted Date Diagnosed [...] Encounters Date Type Department Care Team Description 08/18/2025 10:20 AM PROJECT ENGINEER Office Visit [facility] [address] [place] [address] Genesis nAdersen MD Stress (Just moved to memory care) 08/18/2025 E-Consult [facility] [address] [place] [address] Jovana Contreras, Laisha 08/17/2025 Travel 07/18/2025 Travel 06/22/2025 8:30 AM CDT Office Visit [facility] [address] [place] [address] Julio Cesar Ball MD Follow Up (Non rheumatic aortic valve disorder /Echo 12/09/24 ) 06/22/2025 Travel 06/17/2025 Travel from Last 3 Months Immunizations Immunization Administration Dates Next Due AMB INFLUENZA IIV3 [...] Unspecified 07/03/2019, 07/09/2018,07/17/2017,07/01,07/19/2015,07/20/2014,06/24/20 13,09/05/2012,08/09/2003 Influenza, High-dose Inactivated 024,07/19/2016,07/19/2015,07/01 Influenza, High-dose Quadriv alent Inactivated 08/02/2023,07/19/2022,07/01/2021 Influenza, [...] PHQ-2 Answer Date Recorded PHQ-2 TOTAL SCORE 3 08/18/2025 Social Connections Answer Date Recorded Do you often feel lonely or isolated from those around you? 0 07/18/2025 Financial Resource Strain Answer Date R ecorded Difficulty of Paying Living Expenses 3 07/18/2025 Difficulty of Paying Living Expenses Not on file 07/18/2025 Food Insecurity Answer Date Recorded Do you worry your food will run out before you are able to buy more? 1 07/18/2025 Transportation Needs Answer Date Record ed Does lack of transportation keep you from medica l appointments? 1 07/18/2025 Does lack of transportation keep you from work, meetings or getting things that you need? 1 07/18/2025 Housing Stability Answer Date Recorded What is your housing situation today? 1 07/18/2025 Utilities Answer Date Recorded Do you have trouble paying f or utilities (for example, heat, electricity, water, phone)? 1 07/18/2025 Comments No Sex and Gender Information Value Date Recorded Sex Assigned at Not on file Legal Sex Female 5:27 AM PROJECT ENGINEER Gender Identity Not on file Sexual Orientation Not on file Obstetrics History Para Term AB IAB SAB Ectopic Multiple Livin g Live Births 3 3 2 Date Outcome GA Total Labor Labor/2nd/3rd Weight Sex Type Anes PTL Mariama A1 A5 Name Clin Para Para Para Last Filed Vital Signs Vital Sign Reading Time Taken Comments Blood Pressure 127/76 08/18/2025 10:16 AM PROJECT ENGINEER Pulse 83 08/18/2025 10:16 AM PROJECT ENGINEER Temperature 36.9 C (98.5 F) 04/23/2024 1:41 PM CDT Respiratory Rate 18 05/22/2021 1:59 PM CDT Oxygen Saturation 100% 08/18/2025 10:16 AM PROJECT ENGINEER Inhaled Oxygen Concentration - - Weight 55.3 kg (122 lb) 08/18/2025 10:16 AM PROJECT ENGINEER Height 166.4 cm (5' 5.5) 03/09/2025 2:36 PM CDT Body Mass Index 19.99 03/09/2025 2:36 PM CDT Plan of Treatment Upcoming Encounters Date Type Department Care Team (Late st Contact Info) Description 10/05/2025 1:40 PM PROJECT ENGINEER Office Visit [facility] [address] [place] [address] Genesis Andersen MD [address] [place] [address] Health Maintenance Due Date Last Done Comments Influenza Vaccine (#1) 2025 , 06/27/2020, 07/03/2019, Additional history exists BMI (ht and wt on same day) for age 18+ 03/09/2026 03/09/2025, 06/25/2024, 02/18/2024, Additional history exists Medicare Wellness for age 65+ 03/10/2026, 02/18/2024, 02/12/2023, Additional history exists Depression screening for age 12+ 08/18/2026 08/18/2025, 08/18/2025, 03/09/2025, Additional history exists Tetanus booster 07/06/2029 07/06/2019, 12/31, 05/01/1999, Additional history exists Hepatitis B series for 19+ Completed 07/23, 01/30/2002, 12/30/2001 Pneumococcal series for age 50+ Completed 7, 02/12/2013 Hepatitis C screening for ag e 18-79 Completed 06/30/2019 Zoster (shingles) series for age 50+ Completed [...] to assess therapeutic efficacy. Sugey Cain PA-C [facility] 03/28/2024 Narrative 03/28/2024 5:44 PM CDT For Patients: Results are automatically released to your [facility] ([email or web address]) account once available, in compliance with federal regulations. This means that you may see your results before your provider has had a chance to review them. Please allow 2-3 business days for your provider to comment on the results. XR DXA Bone Mineral Density (BMD) EXAM LOCATION: [address] [address] PATIENT NAME: Sheela Pitts DATE OF : [...] two scanners are made by the same vision therapist. PROCEDURE: Dual-energy x-ray absorptiometry performed with routine [...] 25.4%. 10-year probability of hip fracture: 7.9%. us Genesis Bailee Ganesh MD DEXA Fi nal Result * ANTI HCV (06/30/2019 10:50 AM CDT) HEPATITIS C ANTIBODY Non-React lesa Non-React lesa 06/30/2019 5:50 PM CDT [facility] Comment:Antibodies to HCV no t detected; does not exclude the possibility of exposure to HCV. Blood BLOOD SPECIMEN / Unknown Non-Lab Venipuncture / Unknown 06/30/2019 10:50 AM CDT 06/30/2019 10:50 AM CDT Genesis Andersen MD SEND OUTS Fi nal Result [facility] [address] [place] [address], from Last 3 Months or Most Recently Relevant to Health Maintenance Insurance MEDICARE PB ONLY [facility] MEDICARE PART B HB ONLY MEDICARE PART A HB ONLY Advance Directives Documents on File Type Date Recorded Patient Sales Training Representative Expl anation Healthcare Directive 10/23/2024 10:21 AM s igned 08/10/24 Healthcare Directive 05/14/2018 2:02 PM HE ALTHCARE DIRECTIVE, RAJEEV, 12/11/07 Care Teams Staff Services Manager Relationship Specialty Start Date End Date Genesis Andersen MD [address] [place] [address] PCP - General 02/07/06
--- NOTE | 2025-08-26 14:07 | ED.GENADULT ---
HPI - General Adult General Chief complaint: Neuro Symptoms/Altered Deficit Stated complaint: Constipated and light headed Time Seen by Provider: 08/26/25 13:45 Source: patient and family Mode of arrival: ambulatory Limitations: no limitations History of Present Illness HPI narrative: Patient is a 80-year-old female presenting today with her daughter, with concerns of not healing well. Patient states that she started taking Zoloft exactly 1 week ago, 12.5 mg daily. By the following day she felt very jittery and nauseated. This continued over the weekend until she contact to her provider, either Saturday or Saturday of this week, and stopped taking the Zoloft. She states that she still not back to normal. She feels lightheaded. She had 1 episode of vertigo when she turned her head quickly that resolved within a couple of minutes and has not repeated. She denies feeling short of breath, denies chest pain. Continues to feel nauseated but has not vomited and has been eating normally. She denies any abdominal discomfort. No dysuria, increased urgency or frequency. She states that she had an episode of loose stools several days ago but did not have a bowel movement yesterday or today. She feels bloated. States that she has not passed gas in a couple of hours. No focal neurologic deficits. No headache. Does state that her head feels full of cotton?. She feels tired. Patient tells me she has been going through a very tough time. 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 She states that the transition has been very difficult for her and she has recurrent panic attacks. She believes her last panic attack was approximately 1 week ago. Related Data Home Medications ?Medication ?Instructions ?Recorded ?Confirmed atorvastatin 10 mg tablet 10 mg PO QPM 02/15/23 08/26/25 hydroxychloroquine 200 mg tablet 300 mg PO DAILY 02/15/23 08/26/25 levothyroxine 100 mcg tablet 100 mcg PO QAM 02/15/23 08/26/25 acyclovir 400 mg tablet 400 mg PO TID PRN 02/19/23 05/15/23 calcium 500 mg tablet 500 mg PO DAILY 02/19/23 05/15/23 cholecalciferol (vitamin D3) 25 1,000 unit PO DAILY 02/19/23 05/15/23 mcg (1,000 unit) capsule docosahexaenoic acid (dha)-epa 1 cap PO DAILY 02/19/23 05/15/23 capsule docusate sodium 100 mg capsule 100 mg PO BID 02/19/23 05/15/23 (Colace) loratadine 10 mg tablet (Claritin) 10 mg PO DAILY 02/19/23 05/15/23 amlodipine 5 mg tablet 5 mg PO DAILY 05/15/23 08/26/25 lisinopril 20 mg tablet 20 mg PO DAILY 05/15/23 08/26/25 Previous Rx's ?Medication ?Instructions ?Recorded celecoxib 200 mg capsule (Celebrex) 200 mg PO QDAY #30 caps 02/22/23 lactulose 20 gram/30 mL oral 20 g (30 mL) PO TID PRN 07/25/23 solution constipation #120 mL Allergies Allergy/AdvReac Type Severity Reaction Status Date / Time sertraline (From Zoloft) Allergy Severe Verified 08/26/25 13:50 latex Allergy Mild Rash Verified 11/24/24 11:11 adhesive tape Allergy Rash Verified 11/24/24 11:11 Review of Systems Status of ROS: Reports: 10 or more systems reviewed and unremarkable except as noted in History and below [facility] Medical History Nonrheumatic aortic (valve) stenosis ?I35.0 - Nonrheumatic aortic (valve) stenosis (ICD-10) Abnormality of aortic valve ?Q23.9 - Congenital malformation of aortic and mitral valves, unspecified (ICD-10) HTN (hypertension) ?I10 - Essential (primary) hypertension (ICD-10) Sjogrens syndrome ?M35.00 - Sjogren syndrome, unspecified (ICD-10) Thoracic aortic ectasia ?I77.810 - Thoracic aortic ectasia (ICD-10) Hypothyroidism (acquired) ?E03.9 - Hypothyroidism, unspecified (ICD-10) Hyponatremia ?E87.1 - Hypo-osmolality and hyponatremia (ICD-10) Osteopenia ?M85.80 - Other specified disorders of bone density and structure, unspecified site (ICD-10) Disorder of bone and cartilage, unspecified ?M89.9 - Disorder of bone, unspecified (ICD-10) ?M94.9 - Disorder of cartilage, unspecified (ICD-10) Migraine ?G43.909 - Migraine, unspecified, not intractable, without status migrainosus (ICD-10) 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 (ICD-10) Premenstrual tension syndromes ?N94.3 - Premenstrual tension syndrome (ICD-10) Surgical History History of temporal artery biopsy (04/22/08) ?Z98.890 - Other specified postprocedural states (ICD-10) History of phacoemulsification of cataract of left eye with intraocular lens implantation (07/30/18) ?Z98.42 - Cataract extraction status, left eye (ICD-10) ?Z96.1 - Presence of intraocular lens (ICD-10) History of phacoemulsification of cataract of right eye with intraocular lens implantation (08/13/18) ?Z98.41 - Cataract extraction status, right eye (ICD-10) ?Z96.1 - Presence of intraocular lens (ICD-10) History of open reduction and internal fixation (ORIF) procedure (02/21/23) ?Z98.890 - Other specified postprocedural states (ICD-10) H/O dilation and curettage ?Z98.890 - Other specified postprocedural states (ICD-10) Social History Smoking Status: Never smoker Do you use any of these nicotine containing products: None Second hand tobacco smoke exposure: No How often do you have a drink containing alcohol: never How often do you have six or more drinks on one occasion: Never AUDIT-C Alcohol total score: 0 Non-prescribed substance use: denies use Caffeine: Yes service: No Exam Narrative: Exam Narrative: Well-nourished well-developed patient in no acute distress. Alert and oriented x3. Answers questions appropriately. Normal affect. Thoughts are goal oriented and rational. No tangential or magical thinking noted. Patient speaks in full sentences without needing to catch her breath. Speech is not slurred or pressured. No word-finding difficulty. HEENT: Normocephalic atraumatic. Pupils are equally round reactive to light. Extraocular muscles are intact. Conjunctivae are moist without any icterus noted. Moist mucous membranes. Posterior pharynx is normal. Neck is soft. Cardiovascular: Heart is regular rate and rhythm S1 and S2 are present with a loud 4 to 5/6 systolic murmur, loudest over the right sternal border. Lungs: Clear to auscultation bilaterally no wheezes rhonchi or rales are appreciated. Patient takes deep breaths without any discomfort. Abdomen: Soft and nontender nondistended with normal bowel sounds. No guarding or rebound tenderness. Extremities: Bilateral lower extremities are without edema. Normal DP and PT pulses. Skin: Well perfused without any obvious rashes. Const: Vital Signs, click to edit/add: Vital Signs - 24 hr 08/26/25 13:46 08/26/25 14:36 Temperature 96.3 F L Pulse Rate [Pulse Oximeter] 85 Respiratory Rate 24 Blood Pressure [Ri t Upper Arm] 164/76 H Pulse Oximetry 99 98 Oxygen Delivery Me thod Room Air Course Course ED Course: Differential diagnoses is extremely broad and includes depression, electrolyte abnormality, hypothyroidism, COVID. EKG, read by me, shows normal sinus rhythm with a pulse of 76. Lactate is normal. No evidence of anemia. Sodium 120, chloride 86. Remainder of chemistries are unremarkable. TSH pending at this time. UA showing trace leukocyte esterase some 1+ protein. COVID negative. Discussed with Dr. Peters will accept the patient for admission at this time. Vital Signs Vital signs: Initial Vital Signs Temperature 96.3 F L 08/26/25 13:46 Temperature Source Temporal Artery Scan 08/26/25 13:46 Pulse Rate 85 08/26/25 13:46 Respiratory Rate 24 08/26/25 13:46 Blood Pressure 164/76 H 08/26/25 13:46 Blood Pressure Mean 105 08/26/25 13:46 Blood Pressure Position Sitting 08/26/25 13:46 Pulse Oximetry 99 08/26/25 13:46 Oxygen Delivery Method Room Air 08/26/25 13:46 Vital Signs Temperature 96.3 F L 08/26/25 13:46 Pulse Rate 85 08/26/25 13:46 Respiratory Rate 24 08/26/25 13:46 Blood Pressure 164/76 H 08/26/25 13:46 Pulse Oximetry 99 08/26/25 13:46 Oxygen Delivery Method Room Air 08/26/25 13:46 Temperature 96.3 F L 08/26/25 13:46 Pulse Rate 85 08/26/25 13:46 Respiratory Rate 24 08/26/25 13:46 Blood Pressure 164/76 H 08/26/25 13:46 Pulse Oximetry 98 08/26/25 14:36 Oxygen Delivery Method Room Air 08/26/25 13:46 Medical Decision Making MDM Narrative Medical decision making narrative: 80-year-old female with symptomatic hyponatremia, also constipation for a day and half. Patient will be admitted for further management. Medical Records Medical records reviewed: Yes I reviewed the patient's medical records Lab Data Lab results reviewed: Yes I reviewed the patient's lab results Labs: Lab Results 08/26/25 08/26/25 Range/Units 14:30 14:55 WBC 5.30 (4.50-11.00) K/uL RBC 4.22 (4.00-5.20) m/uL Hgb 13.3 (12.0-16.0) gm/dL Hct 37.9 (33.0-51.0) % MCV 90 (80-100) fL MCH 32 (26-34) pg MCHC 35 (32-36) gm/dL RDW Coeff of Balaji 12.6 (11.5-15.5) % Plt Count 241 (140-440) K/uL Neut % (Auto) 78.5 H (42.0-72.0) % Lymph % (Auto) 8.5 L (20-44) % Garrett % (Auto) 12.6 H (0.0-11.0) % Eos % (Auto) 0.0 (0.0-7.0) % Baso % (Auto) 0.2 (0.0-3.0) % Neut # (Auto) 4.20 (1.7-7.0) K/uL Lymph # (Auto) 0.50 L (0.90-2.90) K/uL Garrett # (Auto) 0.70 (0.00-0.90) K/UL Eos # (Auto) 0.00 (0.00-0.50) K/uL Baso # (Auto) 0.01 (0.00-0.30) K/uL Abs Immat Gran (auto) 0.01 (0.00-0.30) K/uL Imm/Tot Granulo (auto) 0.2 % Sodium (135-149) mmol/L Potassium 3.8 (3.6-5.1) mmol/L Chloride 86 L (96-114) mmol/L Carbon Dioxide 22 (20-32) mmol/L Anion Gap 12 (7-15) mEq/L BUN 14 (7-30) mg/dL Creatinine 0.8 (0.5-1.5) mg/dL Estimated Creat Clear 39.85 Estimated GFR 75 ml/min Glucose 124 H (60-115) mg/dL Lactate 1.6 (0.5-1.9) mmol/L Calcium 8.7 (8.4-10.6) mg/dL Magnesium 2.2 (1.5-2.6) mg/dL Total Bilirubin 0.5 (0.1-1.5) mg/dL Direct Bilirubin 0.1 (0.0-0.5) mg/dL AST 40 H (12-35) U/L ALT 28 (4-35) U/L Alkaline Phosphatase 65 (40-150) U/L Troponin I < 0.01 (0.01-0.04) ng/mL C-Reactive Protein < 0.5 L (0.5-1.0) mg/dL Total Protein 7.1 (6.0-8.3) g/dL Albumin 4.4 (3.3-5.0) g/dL Procalcitonin 0.04 (<0.50) ng/mL Urine Color Yellow (Yellow) Urine Appearance Clear (Clear) Urine pH 5.5 (5.0-8.5) Ur Specific [place] 1.025 (1.000-1.030) Urine Protein 1+ A (Negative) Urine Glucose (UA) Negative (Negative) Urine Ketones Negative (Negative) Urine Blood Negative (Negative) Urine Nitrite Negative (Negative) Urine Bilirubin Negative (Negative) Urine Urobilinogen 0.2 (0.2-1.0) Ur Leukocyte Esterase Trace A (Negative) Urine RBC 0-2 (0-2) Urine WBC 0-2 (0-5) Ur Squamous Epith Cells None (None-Few) Urine Bacteria Few A (None) SARS-CoV-2 (PCR) Negative SARS-CoV-2 (Negative) ECG Data Attestation: I personally reviewed and interpreted this ECG as follows: Discharge Plan Discharge Clinical Impression: Hyponatremia, Constipation Patient Disposition: Admitted As Inpatient Condition: Stable
[2025-08-26 14:37] LABS: Lactate* 1.6 mmol/L (0.5-1.9)
[2025-08-26 14:46] LABS: Hematocrit* 37.9 % (33.0-51.0); Hemoglobin* 13.3 gm/dL (12.0-16.0); Immature Granulocytes Abs Auto 0.01 K/uL (0.00-0.30); Immature Granulocytes Pct Auto 0.2 %; Mean Corpuscular HGB Conc 35 gm/dL (32-36); Mean Corpuscular Hemoglobin 32 pg (26-34); Mean Corpuscular Volume 90 fL (80-100); RDW Coefficient of Variation % 12.6 % (11.5-15.5); Red Blood Count* 4.22 m/uL (4.00-5.20); White Blood Count* 5.30 K/uL (4.50-11.00)
[2025-08-26 14:56] LABS: Lymphocytes Absolute Auto 0.50 K/uL (0.90-2.90); Slide Review Reflex No
[2025-08-26 14:59] LABS: Albumin* 4.4 g/dL (3.3-5.0); Chloride* 86 mmol/L (96-114); Potassium* 3.8 mmol/L (3.6-5.1)
[2025-08-26 15:01] LABS: Blood Urea Nitrogen* 14 mg/dL (7-30); Creatinine* 0.8 mg/dL (0.5-1.5); Est. Creatinine Clearance* 39.85; Estimated Glomerular Filt Rate 75 ml/min
[2025-08-26 15:02] LABS: Alanine Aminotransferase* 28 U/L (4-35); Alkaline Phosphatase* 65 U/L (40-150); Anion Gap 12 mEq/L (7-15); Aspartate Amino Transferase* 40 U/L (12-35); Bilirubin Direct* 0.1 mg/dL (0.0-0.5); Bilirubin Total* 0.5 mg/dL (0.1-1.5); Calcium* 8.7 mg/dL (8.4-10.6); Carbon Dioxide* 22 mmol/L (20-32); Glucose* 124 mg/dL (60-115); Total Protein* 7.1 g/dL (6.0-8.3)
[2025-08-26 15:06] LABS: Appearance Urine Clear (Clear)
[2025-08-26 15:19] LABS: Procalcitonin* 0.04 ng/mL (<0.50)
[2025-08-26 15:20] LABS: SARS PCR* Negative SARS-CoV-2 (Negative)
[2025-08-26 16:16] LABS: Sodium Urine Random* 11
--- NOTE | 2025-08-26 16:43 | PM.IMHP1 ---
Assessment and Plan Assessment and plan (1) Hyponatremia: Problem comment: Acute on chronic hyponatremia. Over the past years her sodium has been between 128 and 131 in clinic. Now 120. Contributing factors to worsening hyponatremia include therapy with sertraline and sodium restriction due to concern about high blood pressure and increased fluid intake to manage constipation. Consider outpatient Nephrology consultation for hyponatremia Status: Acute (2) Constipation: Problem comment: I recommend the patient use fiber supplement and senna primarily and MiraLax secondarily to manage constipation. Do not drink extra fluid to manage constipation. Status: Acute (3) HTN (hypertension): Problem comment: I recommend patient have a liberalized sodium intake in her diet. If blood pressure is uncontrolled would recommend increased medication treatment for hypertension including possible use of a loop diuretic such as torsemide if concern about volume status/edema. Status: Acute (4) Sjogrens syndrome: Status: Acute (5) Hypothyroidism (acquired): Status: Acute (6) Constipation: Status: Acute (7) Anxiety: Problem comment: Poorly tolerated sertraline so trial of mirtazapine 7.5 mg at bedtime to help with insomnia depression and anxiety Status: Acute (8) Depression: Problem comment: Poorly tolerated sertraline so trial of mirtazapine 7.5 mg at bedtime to help with insomnia depression and anxiety Status: Acute (9) Insomnia: Problem comment: Poorly tolerated sertraline so trial of mirtazapine 7.5 mg at bedtime to help with insomnia depression and anxiety Status: Acute Plan 80-year-old female admitted to the hospital with symptoms outlined above. These are at least partly related to her worsening hyponatremia. Acute treatment with increased sodium and furosemide. When close to baseline sodium can be discharged with an outpatient plan to liberalize sodium intake, reduce fluid intake. I recommend that constipation be managed primarily with fiber and senna with MiraLax as needed. Do not take increased oral fluids to treat constipation due to hyponatremia If increased outpatient sodium intake causes hypertension or edema consider increasing antihypertensives and possibly adding torsemide for volume control. Trial of mirtazapine in the hospital to see if she can tolerate it. Total Time Spent Total Time Spent: Total time spent today is 90 minutes in reviewing outside records, coordination of care, discussion with patient and her daughter ongoing management of hyponatremia, anxiety, insomnia, hypertension and constipation. Hospitalist- H&P: [facility] History of Present Illness Date Seen: 08/26/25 Chief complaint: Constipated and light headed Narrative: Sheela Pitts is a 80 year old female with hypertension, Sjogren's syndrome, aortic stenosis, anxiety, depression, constipation, chronic hyponatremia admitted to the hospital with one-week of tremulousness, severe nausea, feeling groggy and having unsteady gait. She has not had a fever or vomiting. She does not have abdominal pain or chest pain. No shortness of breath. She was seen in clinic 1 week ago where she was started on sertraline 12.5 mg daily to address her anxiety and depression which have been quite a bit worse recently. Her symptoms are worse because of the stress associated with moving her to [facility]. She felt worse after taking these with the onset of the above symptoms. Because of this she stop taking the sertraline 2 days ago on her doctor's advice. She does not feel better having stop the sertraline and because that came to the emergency room today. She has a history of chronic hyponatremia. Reviewing her records I see that her sodium has been between 128 and 131 in the last several years. Chart notes indicate that this was thought to be SIADH. She does tell me that she avoid salt in her diet because of hypertension and she drinks extra fluid because of constipation. Review of Systems Narrative: She reports doing well except as noted above. Medical Decision Making Medical Decision Making Has patient completed a Health Care Directive: Yes [facility] Medical History (Updated 08/26/25 @ 17:09 by Wero Peters MD) Insomnia ?G47.00 - Insomnia, unspecified (ICD-10) Depression ?F32.A - Depression, unspecified (ICD-10) Anxiety ?F41.9 - Anxiety disorder, unspecified (ICD-10) Constipation ?K59.00 - Constipation, unspecified (ICD-10) Nonrheumatic aortic (valve) stenosis ?I35.0 - Nonrheumatic aortic (valve) stenosis (ICD-10) Abnormality of aortic valve ?Q23.9 - Congenital malformation of aortic and mitral valves, unspecified (ICD-10) HTN (hypertension) ?I10 - Essential (primary) hypertension (ICD-10) Sjogrens syndrome ?M35.00 - Sjogren syndrome, unspecified (ICD-10) Thoracic aortic ectasia ?I77.810 - Thoracic aortic ectasia (ICD-10) Hypothyroidism (acquired) ?E03.9 - Hypothyroidism, unspecified (ICD-10) Hyponatremia ?E87.1 - Hypo-osmolality and hyponatremia (ICD-10) Osteopenia ?M85.80 - Other specified disorders of bone density and structure, unspecified site (ICD-10) Disorder of bone and cartilage, unspecified ?M89.9 - Disorder of bone, unspecified (ICD-10) ?M94.9 - Disorder of cartilage, unspecified (ICD-10) Migraine ?G43.909 - Migraine, unspecified, not intractable, without status migrainosus (ICD-10) 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 (ICD-10) Premenstrual tension syndromes ?N94.3 - Premenstrual tension syndrome (ICD-10) Surgical History History of temporal artery biopsy (04/22/08) ?Z98.890 - Other specified postprocedural states (ICD-10) History of phacoemulsification of cataract of left eye with intraocular lens implantation (07/30/18) ?Z98.42 - Cataract extraction status, left eye (ICD-10) ?Z96.1 - Presence of intraocular lens (ICD-10) History of phacoemulsification of cataract of right eye with intraocular lens implantation (08/13/18) ?Z98.41 - Cataract extraction status, right eye (ICD-10) ?Z96.1 - Presence of intraocular lens (ICD-10) History of open reduction and internal fixation (ORIF) procedure (02/21/23) ?Z98.890 - Other specified postprocedural states (ICD-10) H/O dilation and curettage ?Z98.890 - Other specified postprocedural states (ICD-10) Family History (Updated 08/26/25 @ 17:00 by Wero Peters MD) Father Hyponatremia Prostate cancer Heart disease Brother Prostate cancer Mother Heart disease Social History (Updated 08/26/25 @ 17:02 by Wero Peters MD) Narrative: She lives in her own home. recently moved into memory care. She has a daughter, Angy of [place], and a son, Wiliam of [place] who she does egg meets as healthcare power of attorney at law. Code status is DNR. She does not smoke. She does not drink alcohol. What is your current living situation?: I presently have a place to live Problems where you live: no known problems In the past 12 months, utilities in danger of being shut off: no In past 12 months, lack of transportation kept you from medical appts, meetings, work, or getting things needed for daily living: no In the past 12 mos, have been you worried that your food would run out before you had money to buy more?: never true In the past 12 mos, the food you bought just didn't last and you didn't have money to buy more?: never true Highest level of school completed/degree received: Master's degree Smoking Status: Never smoker Do you use any of these nicotine containing products: None Second hand tobacco smoke exposure: No How often do you have a drink containing alcohol: never How often do you have six or more drinks on one occasion: Never AUDIT-C Alcohol total score: 0 Non-prescribed substance use: denies use Caffeine: No How often does anyone, including family, friends and others, physically hurt you: never How often does anyone, including family, friends and others, insult or talk down to you: never How often does anyone, including family, friends and others, threaten you with harm: never How often does anyone, including family, friends and others, scream or curse at you: never service: No Meds Home Medications and Allergies Home Medications ?Medication ?Instructions ?Recorded ?Confirmed ?Type atorvastatin 10 mg tablet 10 mg PO QPM 02/15/23 08/26/25 History hydroxychloroquine 200 mg tablet 300 mg PO DAILY 02/15/23 08/26/25 History levothyroxine 100 mcg tablet 100 mcg PO QAM 02/15/23 08/26/25 History acyclovir 400 mg tablet 400 mg PO TID PRN 02/19/23 05/15/23 History calcium 500 mg tablet 500 mg PO DAILY 02/19/23 05/15/23 History cholecalciferol (vitamin D3) 25 1,000 unit PO DAILY 02/19/23 05/15/23 History mcg (1,000 unit) capsule docosahexaenoic acid (dha)-epa 1 cap PO DAILY 02/19/23 05/15/23 History capsule docusate sodium 100 mg capsule 100 mg PO BID 02/19/23 05/15/23 History (Colace) loratadine 10 mg tablet (Claritin) 10 mg PO DAILY 02/19/23 05/15/23 History celecoxib 200 mg capsule (Celebrex) 200 mg PO QDAY #30 caps 02/22/23 05/15/23 Rx amlodipine 5 mg tablet 5 mg PO DAILY 05/15/23 08/26/25 History lisinopril 20 mg tablet 20 mg PO DAILY 05/15/23 08/26/25 History lactulose 20 gram/30 mL oral 20 g (30 mL) PO TID PRN 07/25/23 Rx solution constipation #120 mL Allergies Allergy/AdvReac Type Severity Reaction Status Date / Time sertraline (From Zoloft) Allergy Severe Verified 08/26/25 13:50 latex Allergy Mild Rash Verified 11/24/24 11:11 adhesive tape Allergy Rash Verified 11/24/24 11:11 Exam Narrative: Exam Narrative: She is alert and appears in no distress. Mildly anxious. Speech is normal. She gives her own history. No facial asymmetry. Eyes normal. Oropharynx with moist mucous membranes. Neck is supple without mass or adenopathy. Respirations are clear to auscultation without wheezing rales or rhonchi. Cardiovascular: S1, S2, 2/6 systolic ejection murmur at the right upper sternal border. Regular rate and rhythm. Abdomen: Bowel sounds active. Abdomen is soft without tenderness or mass. Extremities with intact pulses, good capillary refill, no edema. She moves all 4 extremities well. Const: Vital Signs, click to edit/add: Vital Signs - 24 hr 08/26/25 13:46 08/26/25 14:36 08/26/25 15:54 Temperature 96.3 F L 98.0 F Pulse Rate Pulse Rate [Pulse Oximeter] 85 70 Respiratory Rate 24 20 Blood Pressure Blood Pressure [Ri ght Upper Arm] 164/76 H 129/85 Pulse Oximetry 99 98 97 Oxygen Delivery Me thod Room Air Room Air 08/26/25 15:55 08/26/25 16:00 08/26/25 16:03 Temperature Pulse Rate 71 72 72 Pulse Rate [Pulse Oximeter] Respiratory Rate 17 25 H 25 H Blood Pressure 168/66 H Blood Pressure [Ri ght Upper Arm] Pulse Oximetry 97 98 96 Oxygen Delivery Me thod Documenting provider has reviewed patient's vital signs: yes Hospitalist - H&P: Result Labs Labs: Short CBC 08/26/25 Range/Units 14:30 WBC 5.30 (4.50-11.00) K/uL Hgb 13.3 (12.0-16.0) gm/dL Hct 37.9 (33.0-51.0) % Plt Count 241 (140-440) K/uL BMP 08/26/25 14:30 Sodium Potassium 3.8 Chloride 86 L Carbon Dioxide 22 BUN 14 Creatinine 0.8 Glucose 124 H Calcium 8.7 Cardiac Enzymes 08/26/25 Range/Units 14:30 Troponin I < 0.01 (0.01-0.04) ng/mL Liver Function 08/26/25 Range/Units 14:30 Total Bilirubin 0.5 (0.1-1.5) mg/dL Direct Bilirubin 0.1 (0.0-0.5) mg/dL AST 40 H (12-35) U/L ALT 28 (4-35) U/L Alkaline Phosphatase 65 (40-150) U/L Albumin 4.4 (3.3-5.0) g/dL Urine 08/26/25 Range/Units 14:55 Urine Color Yellow (Yellow) Urine Appearance Clear (Clear) Urine pH 5.5 (5.0-8.5) Ur Specific [place] 1.025 (1.000-1.030) Urine Protein 1+ A (Negative) Urine Glucose (UA) Negative (Negative)
[2025-08-26] MEDS: FUROSEMIDE 10 MG/ML inj 20 MG IVP (17:28)
[2025-08-26] MEDS: POTASSIUM BICARB 25 MEQ EFFERVESCENT TAB PO (17:28)
[2025-08-26] MEDS: SENNOSIDES/DOCUSATE TABLET 1 TAB PO (17:30)
[2025-08-26] MEDS: ATORVASTATIN CALCIUM 10 MG TABLET PO (17:30)
[2025-08-26] MEDS: MIRTAZAPINE 15 MG TABLET 7.5 MG PO (20:21)
[2025-08-26] MEDS: SODIUM CHLORIDE 0.9 % (FLUSH) 10 ML SYRINGE 5 ML IVF (20:23)
[2025-08-26 22:39] LABS: Sodium* 125 mmol/L (135-149)
--- NOTE | 2025-08-26 23:40 | PC.NURSE ---
End of shift Note 249 Patient has been very pleasant and cooperative throughout shift. VSS. Afebrile. Patient stated her head no longer feels full of cotton and that she felt so much better towards the evening. Patient uses call light appropriately. Independent. Call light within reach.
[2025-08-27 03:34] VITALS: BP 136/62; PULSE 64; RESP 16; TEMP 36.5; O2SAT 98
[2025-08-27] MEDS: LEVOTHYROXINE 100 MCG TABLET PO (05:35)
--- NOTE | 2025-08-27 06:45 | PC.NURSE ---
Pt alert and oriented. Pt had no complaints of pain. Pt up independently in?room. Pt slept throughout the night.?
[2025-08-27 06:56] LABS: Chloride* 93 mmol/L (96-114); Potassium* 4.2 mmol/L (3.6-5.1); Sodium* 126 mmol/L (135-149)
[2025-08-27 06:59] LABS: Anion Gap 8 mEq/L (7-15); Blood Urea Nitrogen* 12 mg/dL (7-30); Calcium* 8.1 mg/dL (8.4-10.6); Carbon Dioxide* 25 mmol/L (20-32); Creatinine* 0.7 mg/dL (0.5-1.5); Est. Creatinine Clearance* 38.89; Estimated Glomerular Filt Rate 88 ml/min; Glucose* 85 mg/dL (60-115)
[2025-08-27 07:00] VITALS: BP 135/63; PULSE 74; RESP 18; TEMP 36.4; O2SAT 99
[2025-08-27 07:50] VITALS: PULSE 74; RESP 18
[2025-08-27] MEDS: SODIUM CHLORIDE 0.9 % (FLUSH) 10 ML SYRINGE 5 ML IVF (07:52)
[2025-08-27] MEDS: 0.9 % SODIUM CHLORIDE 500 ML 500 ML IV (07:52)
[2025-08-27] MEDS: SODIUM CHLORIDE 1 GM TABLET PO ×2 (09:11→13:36)
[2025-08-27] MEDS: HYDROXYCHLOROQUINE 200 MG TABLET 300 MG PO (09:11)
[2025-08-27] MEDS: AMLODIPINE 5 MG TABLET PO (09:11)
[2025-08-27] MEDS: SENNOSIDES/DOCUSATE TABLET 1 TAB PO (09:11)
--- NOTE | 2025-08-27 10:53 | REH.OT ---
OT: Order received, chart reviewed and per MD and RN patient independent in room and no OT/PT needs identified. Order cancelled per MD.
[2025-08-27 11:00] VITALS: BP 159/75; PULSE 70; RESP 18; TEMP 36.4; O2SAT 99
[2025-08-27 11:08] LABS: Sodium* 120 mmol/L (135-149)
[2025-08-27 12:14] LABS: Sodium* 126 mmol/L (135-149)
--- NOTE | 2025-08-27 13:35 | P.DS_ITS ---
DS: Providers Provider Date Seen: 08/27/25 Date of admission: 08/26/25 16:05 Primary care physician: Genesis Andersen MD Admitting Clinician: Wero Peters MD Consults: 08/26/25 16:53 Consult to Occupational Therapy [CONS] Routine Comment: Reason(s) for OT Consult:: Evaluate and Treat Any Restrictions?:: No Restrictions Attending Physician on discharge: Denisse Prescott [facility] Date of Discharge: 08/27/25 DS: Diagnosis Discharge Diagnosis (1) Hyponatremia: Status: Acute Problem details: Acute on chronic hyponatremia. Over the past years her sodium has been between 128 and 131 in clinic. Now 120. Contributing factors to worsening hyponatremia include therapy with sertraline and sodium restriction due to concern about high blood pressure and increased fluid intake to manage constipation. Admitted with sodium of 120, received 1 L NS. Sodium increased to 125 -> 126. Symptoms resolved, patient reporting feeling much better. Sertraline discontinued. Discussed substituting free water with electrolytes. Discharge with sodium of 126, electrolyte oral intake over the weekend, sodium tablets t.i.d. x3 days. Will need outpatient follow-up next week along with sodium recheck. Consider outpatient Nephrology consultation for hyponatremia which can be arranged through PCP. (2) Constipation: Status: Acute Problem details: I recommend the patient use fiber supplement (Citrucel) and senna primarily and MiraLax secondarily to manage constipation. Do not drink extra fluid to manage constipation. Substituting instead electrolyte fluids. Encourage daily exercise. Outpatient follow-up with PCP for ongoing management of chronic constipation. (3) HTN (hypertension): Status: Acute Problem details: I recommend patient have a liberalized sodium intake in her diet. If blood pressure is uncontrolled would recommend increased medication treatment for hypertension including possible use of a loop diuretic such as torsemide if concern about volume status/edema. (4) Sjogrens syndrome: Status: Acute Problem details: Chronic (5) Hypothyroidism (acquired): Status: Acute Problem details: Chronic. Continue levothyroxine (6) Anxiety: Status: Acute Problem details: Poorly tolerated sertraline so trial of mirtazapine 7.5 mg at bedtime to help with insomnia depression and anxiety. Discharged with instructions to discontinue sertraline and continue mirtazapine. Outpatient follow-up with PCP for ongoing management. (7) Depression: Status: Acute Problem details: Poorly tolerated sertraline so trial of mirtazapine 7.5 mg at bedtime to help with insomnia depression and anxiety. As above. (8) Insomnia: Status: Acute Problem details: Poorly tolerated sertraline so trial of mirtazapine 7.5 mg at bedtime to help with insomnia depression and anxiety. Patient reports sleeping quite heavily overnight with 1st dose of mirtazapine. Ongoing outpatient management with PCP. DS: Summary Hospital Course Hospital Course: Admitted with acute hyponatremia, 1st sodium 120 in ED. Improved to 126 prior to discharge. Instructions to discontinue sertraline and continue mirtazapine. Discharged on oral sodium tablets t.i.d. over the weekend as well as encouragement for electrolyte fluid intake in place of free water. Outpatient follow-up PCP in recheck of sodium. Status at Discharge Functional status at discharge: independent ambulation Overall status at discharge: patient is back to baseline Time Spent with Patient Time attestation: Total time spent providing and/or coordinating discharge services: Time spent: Greater than 30 minutes Exam Narrative: Exam Narrative: PHYSICAL EXAM General: Pleasant, conversant, NAD Cardiovascular: RRR Pulmonary: No dyspnea Neurological: Alert, answering questions appropriately Skin: Warm, dry. Const: Vital Signs, click to edit/add: Vital Signs - 24 hr 08/26/25 13:46 08/26/25 14:36 08/26/25 15:54 Temperature 96.3 F L 98.0 F Pulse Rate Pulse Rate [Left P ulse Oximeter] Pulse Rate [Pulse Oximeter] 85 70 Respiratory Rate 24 20 Blood Pressure Blood Pressure [Le ft Arm] Blood Pressure [Ri ght Arm] Blood Pressure [Ri ght Upper Arm] 164/76 H 129/85 Pulse Oximetry 99 98 97 Oxygen Delivery Me thod Room Air Room Air 08/26/25 15:55 08/26/25 16:00 08/26/25 16:03 Temperature Pulse Rate 71 72 72 Pulse Rate [Left P ulse Oximeter] Pulse Rate [Pulse Oximeter] Respiratory Rate 17 25 H 25 H Blood Pressure 168/66 H Blood Pressure [Le ft Arm] Blood Pressure [Ri ght Arm] Blood Pressure [Ri ght Upper Arm] Pulse Oximetry 97 98 96 Oxygen Delivery Me thod 08/26/25 16:33 08/26/25 16:33 08/26/25 19:00 Temperature 97.9 F 97.9 F 97.5 F L Pulse Rate Pulse Rate [Left P ulse Oximeter] 75 75 76 Pulse Rate [Pulse Oximeter] Respiratory Rate 20 20 18 Blood Pressure Blood Pressure [Le ft Arm] Blood Pressure [Ri ght Arm] 167/69 H 167/69 H 137/68 Blood Pressure [Ri ght Upper Arm] Pulse Oximetry 99 99 99 Oxygen Delivery Me thod Room Air Room Air Room Air 08/26/25 23:00 08/27/25 03:34 08/27/25 07:00 Temperature 97.9 F 97.7 F 97.6 F Pulse Rate Pulse Rate [Left P ulse Oximeter] 68 64 74 Pulse Rate [Pulse Oximeter] Respiratory Rate 16 16 18 Blood Pressure Blood Pressure [Le ft Arm] Blood Pressure [Ri ght Arm] 127/67 136/62 135/63 Blood Pressure [Ri ght Upper Arm] Pulse Oximetry 99 98 99 Oxygen Delivery Me thod Room Air Room Air Room Air 08/27/25 07:50 08/27/25 11:00 Temperature 97.5 F L Pulse Rate Pulse Rate [Left P ulse Oximeter] 74 70 Pulse Rate [Pulse Oximeter] Respiratory Rate 18 18 Blood Pressure Blood Pressure [Le ft Arm] 159/75 H Blood Pressure [Ri ght Arm] Blood Pressure [Ri ght Upper Arm] Pulse Oximetry 99 Oxygen Delivery Me thod Room Air DS: Data Data Completed and Pending Labs on day of discharge: Labs from last 24 hours 08/27/25 08/27/25 08/26/25 11:55 06:03 22:17 WBC RBC Hgb Hct MCV MCH MCHC RDW Coeff of Balaji Plt Count Neut % (Auto) Lymph % (Auto) [place] % (Auto) Eos % (Auto) Baso % (Auto) Neut # (Auto) Lymph # (Auto) [place] # (Auto) Eos # (Auto) Baso # (Auto) Abs Immat Gran (auto) Imm/Tot Granulo (auto) Sodium 126 L 126 L 125 L Potassium 4.2 Chloride 93 L Carbon Dioxide 25 Anion Gap 8 BUN 12 Creatinine 0.7 Estimated Creat Clear 38.89 Estimated GFR 88 Glucose 85 Lactate Calcium 8.1 L Magnesium Total Bilirubin Direct Bilirubin AST ALT Alkaline Phosphatase Troponin I C-Reactive Protein Total Protein Albumin Procalcitonin TSH Urine Color Urine Appearance Urine pH Ur Specific Russell Urine Protein Urine Glucose (UA) Urine Ketones Urine Blood Urine Nitrite Urine Bilirubin Urine Urobilinogen Ur Leukocyte Esterase Urine RBC Urine WBC Ur Squamous Epith Cells Urine Bacteria Ur Random Sodium SARS-CoV-2 (PCR) 08/26/25 08/26/25 14:55 14:30 WBC 5.30 RBC 4.22 Hgb 13.3 Hct 37.9 MCV 90 MCH 32 MCHC 35 RDW Coeff of Balaji 12.6 Plt Count 241 Neut % (Auto) 78.5 H Lymph % (Auto) 8.5 L [place] % (Auto) 12.6 H Eos % (Auto) 0.0 Baso % (Auto) 0.2 Neut # (Auto) 4.20 Lymph # (Auto) 0.50 L [place] # (Auto) 0.70 Eos # (Auto) 0.00 Baso # (Auto) 0.01 Abs Immat Gran (auto) 0.01 Imm/Tot Granulo (auto) 0.2 Sodium 120 L* Potassium 3.8 Chloride 86 L Carbon Dioxide 22 Anion Gap 12 BUN 14 Creatinine 0.8 Estimated Creat Clear 39.85 Estimated GFR 75 Glucose 124 H Lactate 1.6 Calcium 8.7 Magnesium 2.2 Total Bilirubin 0.5 Direct Bilirubin 0.1 AST 40 H ALT 28 Alkaline Phosphatase 65 Troponin I < 0.01 C-Reactive Protein < 0.5 L Total Protein 7.1 Albumin 4.4 Procalcitonin 0.04 TSH 1.290 Urine Color Yellow Urine Appearance Clear Urine pH 5.5 Ur Specific Russell 1.025 Urine Protein 1+ A Urine Glucose (UA) Negative Urine Ketones Negative Urine Blood Negative Urine Nitrite Negative Urine Bilirubin Negative Urine Urobilinogen 0.2 Ur Leukocyte Esterase Trace A Urine RBC 0-2 Urine WBC 0-2 Ur Squamous Epith Cells None Urine Bacteria Few A Ur Random Sodium 11 SARS-CoV-2 (PCR) Negative SARS-CoV-2 Preliminary micro results at discharge 08/26/25 14:55 Urine Culture - Preliminary Urine,Clean Catch < 50,000 COL/ML MIXED GRAM POSITIVE GALE ISOLATED NO FURTHER WORKUP Discharge Plan Discharge Disposition: Home, Self-Care Date of Admission: 08/26/25 16:05 Attending Provider on Discharge: Denisse Prescott Primary Care Provider: Genesis Andersen Condition: Stable Anticipated Discharge Date/Time: 08/27/25 13:25 Discharge Medications: New sodium chloride 1,000 mg Tablet,Soluble 1,000 mg PO TIDWM Qty: 9 0RF mirtazapine 15 mg Tablet 7.5 mg PO HS Qty: 30 0RF Continued amlodipine 5 mg tablet 5 mg PO DAILY lisinopril 20 mg tablet 20 mg PO DAILY atorvastatin 10 mg tablet 10 mg PO QPM levothyroxine 100 mcg tablet 100 mcg PO QAM hydroxychloroquine 200 mg tablet 300 mg PO DAILY acyclovir 400 mg tablet 400 mg PO TID PRN Rx Instructions: X7 DAYS calcium 500 mg tablet 500 mg PO DAILY cholecalciferol (vitamin D3) 25 mcg (1,000 unit) capsule 1,000 unit PO DAILY docusate sodium [Colace] 100 mg capsule 100 mg PO BID loratadine [Claritin] 10 mg tablet 10 mg PO DAILY celecoxib [Celebrex] 200 mg capsule 200 mg PO QDAY Qty: 30 1RF Discontinued lactulose 20 gram/30 mL solution 20 g PO TID PRN (Reason: constipation) Qty: 120 0RF docosahexaenoic acid-epa Capsule 1 cap PO DAILY Discharge Orders: Discharge Order (Routine); Ordered 08/27/25 Ordered By: Denisse Prescott Patient Education: Mirtazapine (By mouth), Sodium Chloride (By mouth) Additional Instructions: Your sodium today is 126. Continue to take sodium tablets over the weekend. Instead of drinking plain/free water, drink electrolyte beverages. Stop taking sertraline. You have been started on Mirtazapine. Continue your bowel regimine and exercise daily. Follow up next week in the clinic and have a repeat sodium test. Activity Level: No Restrictions Discharge Diet: Regular Follow Up Appointments: Genesis Andersen MD [Primary Care Provider, Family Practice] - 08/31/25 11:10 am Referral Note: [facility] for hospital follow-up. Forms: Cmed Info Instructions
--- NOTE | 2025-08-27 14:55 | PC.NURSE ---
Nursing Care Hours: [id number] Pt this shift calm and cooperative, alert and oriented. No c/o pain. Does report constipation, states it feels like it is stuck. Glycerin suppository administered and effective. VSS. Independent in the room. Compliant with fluid restriction. Discussed electrolyte replacements and drinks when going home. Discharge instructions went over with pt and all questions and concerns addressed. IV removed for discharge and pt ambulated off the unit, picked up by adult daughter.
== END 2025-08-27 14:20 | disposition home or self-care (01) ==
LOC: ED 15:36 → MEDSURG 16:05
PROVIDERS: Physician Assistant; Admitting Provider Family Medicine; Emergency Provider Family Medicine; PCP Family Medicine; Visit Provider Family Medicine
DX: E87.1 Hypo-osmolality and hyponatremia (principal); K59.00 Constipation, unspecified; I10 Essential (primary) hypertension; M35.00 Sjogren syndrome, unspecified; E03.9 Hypothyroidism, unspecified; F41.8 Other specified anxiety disorders; G47.00 Insomnia, unspecified
CPT/HCPCS: 36415; 80048; 80076; 81001; 83605; 83735; 84145; 84295; 84300; 84443; 84484; 85025; 86140; 87086; 87635; 93005; 94761; 96361; 96374; 99284; 99285; A9270; G0378; J1938; J7030